=== PATIENT | male | born 1935 | race Caucasian/White ===

== ENCOUNTER 2017-07-11 05:48 | Day surgery (SDC) | payer MEDICARE ==
[2017-07-11] MEDS ORDERED: DIPRIVAN 200 MG/20 ML IV ONE (05:49)
[2017-07-11] MEDS ORDERED: Lactated Ringers 1,000 ML IV SCH (06:00)
[2017-07-11 09:34] VITALS: BP 140/71; PULSE 50; O2SAT 98
--- NOTE | 2017-07-11 10:12 | OP ---
SURGERY DATE/TIME: 07/11/2017 0755 PREOPERATIVE DIAGNOSIS: Abdominal pain and history of colon polyps. POSTOPERATIVE DIAGNOSIS: Sigmoid diverticulosis otherwise normal colon. PROCEDURE: Colonoscopy. SURGEON: Dr. Lacy. ANESTHESIA: MAC. Medications given by anesthesia department. HISTORY: The patient is an 82 year-old white male patient presenting now for colonoscopic evaluation. He reports he has been having problems with abdominal pain in the lower area. He reports every time he has had a colonoscopy in the past polyps have been removed. He reports it has been nine years since his most recent exam. The patient was felt the need to have endoscopic evaluation. He was appraised of the risks of the procedure including the risk of perforation, phlebitis, untoward reaction to medication, bleeding and missed lesions. The patient verbalized his understanding and desired to have the procedure performed. DESCRIPTION OF PROCEDURE: The patient was given the medications by the anesthesia department. He had continuous pulse oximetry, ECG monitoring, intermittent blood pressure monitoring and tidal CO2 monitoring during the examination. He was placed in the left lateral decubitus position. A digital rectal examination was performed and revealed normal anal sphincter tone, a firm but normal sized prostate with a small nodule in the 12:00 position. There were no other masses felt. Small hemorrhoids were present. The flexible Olympus pediatric colonoscope was used to intubate the rectum. A view of the colon was developed sequentially to the cecum as identified by the appendiceal orifice and ileocecal valve. Upon insertion and withdrawal, including a retroflex view in the rectum was noted moderate sigmoid diverticulosis otherwise no mucosal lesions were encountered. The scope was removed from the patient who tolerated the procedure well and was sent back to OP recovery in good condition. The prep was noted to be fair.
== END 2017-07-11 09:30 | disposition home or self-care (01) ==
LOC: SDC 05:48
PROVIDERS: ATTEND Family Medicine
DX: K57.30 Diverticulosis of large intestine without perforation or abscess without bleeding (principal); Z86.010 Personal history of colon polyps
CPT/HCPCS: 99100; J2704

== ENCOUNTER 2024-05-14 09:30 | Inpatient (IN) | payer MEDICARE, OTHER ==
--- NOTE | 2024-05-14 09:39 | ERPHSYRPT ---
- History of Present Illness Time Seen by Provider: 05/14/24 09:39 Historian: patient, family Exam Limitations: no limitations Physician History: This is an 89-year-old white male patient of Dr. Leblanc who arrives by private vehicle with complaints of abdominal pain and nausea. Patient states that yesterday afternoon he ate a [employer] hamburger and then in the early evening he ate meatloaf dinner. At 3:00 this morning he had severe abdominal pain that is generalized but most of the pain now is in the left lower quadrant. He said no vomiting and has had no diarrhea. He denies chest pain and he denies shortness of breath. He thinks he might of had food poisoning. Patient has a history gastroesophageal reflux disease, hypertension, coronary artery disease ( CABG and cardiac stent) and is on Plavix. Patient states that he can take morphine. He cannot take Sahara. Timing/Duration: today Quality: cramping Abdominal Pain Onset Location: LLQ (Worse pain in the left lower quadrant), generalized abdomen Pain Radiation: no radiation Severity of Pain-Max: moderate Severity of Pain-Current: moderate Modifying Factors: Improves With: other (Nausea without vomiting). Worsens With: vomiting Associated Symptoms: loss of appetite, nausea, No chest pain, No shortness of breath, No vomiting Previous symptoms: no prior history, no recent treatment Allergies/Adverse Reactions: mexiletine [From Mexitil] Allergy (Mild, Verified 05/14/24 09:42) Rash morphine [From Sahara] Allergy (Mild, Verified 05/14/24 09:42) Rash Home Medications: Isosorbide Mononitrate 30 mg [Imdur 30 MG] 30 mg PO DAILY 05/14/24 [History] Lisinopril 10 mg [Zestril 10 MG] 10 mg PO DAILY 05/14/24 [History] Omeprazole 20 mg PO DAILY 05/14/24 [History] Travel Risk - International Travel Have you traveled outside of the country in past 3 weeks: No - Emerging Infectious Disease Are you exhibiting symptoms associated with any current EIDs: Yes Symptoms: Abdominal Pain - Review of Systems Constitutional: No Symptoms Eyes: No Symptoms Ears, Nose, & Throat: No Symptoms Respiratory: No Symptoms Cardiac: No Symptoms Abdominal/Gastrointestinal: Abdominal Pain, Nausea, Appetite Changes Genitourinary Symptoms: No Symptoms Musculoskeletal: No Symptoms Skin: No Symptoms Neurological: No Symptoms Psychological: No Symptoms Endocrine: No Symptoms Hematologic/Lymphatic: No Symptoms Immunological/Allergic: No Symptoms All Other Systems: Reviewed and Negative - Past Medical History Pertinent Past Medical History: Yes Neurological History: No Pertinent History ENT History: No Pertinent History Cardiac History: Hypertension, Myocardial Infarction (IA) Respiratory History: No Pertinent History Endocrine Medical History: No Pertinent History Musculoskeletal History: Arthritis GI Medical History: No Pertinent History History: No Pertinent History Psycho-Social History: No Pertinent History Male Reproductive Disorders: No Pertinent History - Past Surgical History Past Surgical History: Yes Neuro Surgical History: No Pertinent History Cardiac: CABG, Cardiac Catheterization, Cardiac Stent Respiratory: No Pertinent History Gastrointestinal: No Pertinent History Genitourinary: No Pertinent History Musculoskeletal: Orthopedic Surgery Male Surgical History: No Pertinent History Other Surgical History: rt shoulder - Social History Smoking Status: Former smoker Exposure to second hand smoke: No - Nursing Vital Signs Nursing Vital Signs: Initial Vital Signs Pulse Rate 63 05/14/24 09:42 Respiratory Rate 21 05/14/24 09:42 Blood Pressure 143/71 05/14/24 09:42 O2 Sat by Pulse Oximetry 97 05/14/24 09:42 Pain Scale Pain Intensity 1 - Physical Exam General Appearance: no apparent distress, alert, anxiety Eye Exam: PERRL/EOMI, eyes nml inspection Ears, Nose, Throat Exam: normal ENT inspection, moist mucous membranes Neck Exam: normal inspection, non-tender, supple, full range of motion Respiratory Exam: normal breath sounds, lungs clear, airway intact, No chest tenderness, No respiratory distress Cardiovascular Exam: regular rate/rhythm, normal heart sounds, normal peripheral pulses Gastrointestinal/Abdomen Exam: soft, normal bowel sounds, tenderness ( Periumbilical into the left periumbilical region), guarding, No rebound Rectal Exam: not done Back Exam: normal inspection, normal range of motion, No CVA tenderness, No vertebral tenderness Extremity Exam: normal inspection, normal range of motion, pelvis stable Neurologic Exam: alert, oriented x 3, cooperative, gynecologist II-XII nml as tested, normal mood/affect, nml cerebellar function, nml station & gait, sensation nml Skin Exam: normal color, warm, dry Lymphatic Exam: No adenopathy SpO2 Interpretation: normal O2 Delivery: Room Air - Course Nursing assessment & vital signs reviewed: Yes Ordered Tests: Active Orders 24 hr Category Date Time Status IV Insertion STAT Care 05/14/24 10:08 Active ABDOMEN AND PELVIS W/0 CONTRAS [CT] Stat Exams 05/14/24 10:08 Completed AMYLASE Stat Lab 05/14/24 10:00 Completed CBC W DIFF Stat Lab 05/14/24 10:00 Completed CMP Stat Lab 05/14/24 10:00 Completed LIPASE Stat Lab 05/14/24 10:00 Completed Lactic Acid Stat Lab 05/14/24 11:10 Completed Medication Summary Generic Name Dose Route Start Last Admin Trade Name Freq PRN Reason Stop Dose Admin Sodium Chloride 1,000 mls @ 100 mls/hr 05/14/24 10:15 05/14/24 12:54 Sodium Chloride 0.9% 1000 Ml IV 06/13/24 10:14 999 mls/hr .Q10H DAO Infusion Discontinued Medications Generic Name Dose Route Start Last Admin Trade Name Freq PRN Reason Stop Dose Admin Morphine Sulfate 4 mg 05/14/24 10:14 05/14/24 10:21 Morphine Sulfate 4 Mg/Ml Injection IV 05/14/24 10:15 4 mg STAT ONE Administration Morphine Sulfate Confirm 05/14/24 10:20 Morphine Sulfate 4 Mg/Ml Injection Administered 05/14/24 10:21 Dose 4 mg .ROUTE .STK-MED ONE Morphine Sulfate 2 mg 05/14/24 13:18 05/14/24 13:23 Morphine Sulfate 2 Mg/Ml Inj IV 05/14/24 13:19 2 mg STAT ONE Administration Morphine Sulfate Confirm 05/14/24 13:20 Morphine Sulfate 2 Mg/Ml Inj Administered 05/14/24 13:21 Dose 2 mg .ROUTE .STK-MED ONE Ondansetron HCl 4 mg 05/14/24 10:08 05/14/24 10:13 Ondansetron Hcl 4 Mg/2 Ml Vial IV 05/14/24 10:09 4 mg STAT ONE Administration Ondansetron HCl Confirm 05/14/24 10:11 Ondansetron Hcl 4 Mg/2 Ml Vial Administered 05/14/24 10:12 Dose 4 mg .ROUTE .STK-MED ONE Pantoprazole Sodium 40 mg 05/14/24 10:08 05/14/24 10:13 Pantoprazole 40 Mg Vial IV 05/14/24 10:09 40 mg STAT ONE Administration Pantoprazole Sodium Confirm 05/14/24 10:11 Pantoprazole 40 Mg Vial Administered 05/14/24 10:12 Dose 40 mg IV .STK-MED ONE Lab/Rad Data: Laboratory Result Diagrams 05/14/24 10:00 05/14/24 10:00 Laboratory Results 05/14/24 05/14/24 05/14/24 Range/Units 11:10 10:13 10:00 WBC (4.23-9.07) x10^3/uL RBC (4.63-6.08) x10^6/uL Hgb (13.7-17.5) g/dL Hct (40.1-51.0) % MCV (79.0-92.2) fL MCH (25.7-32.2) pg MCHC (32.3-36.5) g/dL RDW (11.6-14.4) % Plt Count (163-337) x10^3/uL MPV (9.4-12.4) fL Gran % (34.0-67.9) % Immature Gran % (Auto) (0.001-0.429) % Nucleat RBC Rel Count (0.00-0.2) % Eos # (Auto) (0.04-0.54) x10^3/uL Immature Gran # (Auto) (0.001-0.031) x10^3u/L Absolute Lymphs (auto) (1.32-3.57) x10^3/uL Absolute Monos (auto) (0.30-0.82) x10^3/uL Absolute Nucleated RBC (0.00-0.012) x10^3u/L Lymphocytes % (21.8-53.1) % Monocytes % (5.3-12.2) % Eosinophils % (0.8-7.0) % Basophils % (0.2-1.2) % Absolute Granulocytes (1.78-5.38) x10^3/uL Basophils # (0.01-0.08) x10^3/uL Sodium (135-145) mmol/L Potassium (3.5-5.1) mmol/L Chloride (98-107) mmol/L Carbon Dioxide (22-30) mmol/L Anion Gap (5-15) MEQ/L BUN (9-20) mg/dL Creatinine (0.66-1.25) mg/dL Estimated GFR ML/MIN Glucose (74-106) mg/dL Lactic Acid 1.9 (0.4-2.0) Calcium (8.4-10.2) mg/dL Total Bilirubin (0.2-1.3) mg/dL AST (17-59) U/L ALT (0-50) U/L Alkaline Phosphatase (38-126) U/L Serum Total Protein (6.3-8.2) g/dL Albumin (3.5-5.0) g/dL Amylase (30-110) U/L Lipase (23-300) U/L Urine Color JUNIE (YELLOW) Urine Appearance CLEAR (CLEAR) Urine pH 5.5 (5-6) Ur Specific [place] >=1.030 A (1.005-1.025) POC Urine Protein Conf 30 A (Negative) Urine Ketones TRACE A (NEGATIVE) Urine Nitrite NEGATIVE (NEGATIVE) Urine Bilirubin NEGATIVE (NEGATIVE) Urine Urobilinogen 0.2 (0-1) mg/dL Urine Leukocytes NEGATIVE (NEGATIVE) Urine RBC SMALL A (0-5) Ed/ul Urine Microscopic RBC 3-5 (0-5) /HPF Urine Microscopic WBC 0-2 (0-5) /HPF Ur Epithelial Cells None Seen (None Seen) /HPF Urine Bacteria Rare A (None Seen) /HPF Urine Mucus Moderate A (NEGATIVE) /HPF Urine Culture Reflexed NO (NO) Urine Glucose NEGATIVE (NEGATIVE) mg/dL Influenza Type A Ag NEGATIVE (NEGATIVE) Influenza Type B Ag NEGATIVE (NEGATIVE) RSV (PCR) NEGATIVE (NEGATIVE) SARS-CoV-2 (PCR) NEGATIVE (NEGATIVE) 05/14/24 05/14/24 Range/Units 10:00 10:00 WBC 9.5 H (4.23-9.07) x10^3/uL RBC 4.86 (4.63-6.08) x10^6/uL Hgb 15.2 (13.7-17.5) g/dL Hct 45.6 (40.1-51.0) % MCV 93.8 H (79.0-92.2) fL MCH 31.3 (25.7-32.2) pg MCHC 33.3 (32.3-36.5) g/dL RDW 12.9 (11.6-14.4) % Plt Count 251 (163-337) x10^3/uL MPV 10.5 (9.4-12.4) fL Gran % 81.2 H (34.0-67.9) % Immature Gran % (Auto) 0.5 H (0.001-0.429) % Nucleat RBC Rel Count 0.0 (0.00-0.2) % Eos # (Auto) 0.08 (0.04-0.54) x10^3/uL Immature Gran # (Auto) 0.05 H (0.001-0.031) x10^3u/L Absolute Lymphs (auto) 0.99 L (1.32-3.57) x10^3/uL Absolute Monos (auto) 0.62 (0.30-0.82) x10^3/uL Absolute Nucleated RBC 0.00 (0.00-0.012) x10^3u/L Lymphocytes % 10.5 L (21.8-53.1) % Monocytes % 6.6 (5.3-12.2) % Eosinophils % 0.8 (0.8-7.0) % Basophils % 0.4 (0.2-1.2) % Absolute Granulocytes 7.68 H (1.78-5.38) x10^3/uL Basophils # 0.04 (0.01-0.08) x10^3/uL Sodium 136 (135-145) mmol/L Potassium 4.3 (3.5-5.1) mmol/L Chloride 103 (98-107) mmol/L Carbon Dioxide 22 (22-30) mmol/L Anion Gap 14.9 (5-15) MEQ/L BUN 27 H (9-20) mg/dL Creatinine 1.01 (0.66-1.25) mg/dL Estimated GFR 71.1 ML/MIN Glucose 121 H (74-106) mg/dL Lactic Acid (0.4-2.0) Calcium 8.8 (8.4-10.2) mg/dL Total Bilirubin 0.80 (0.2-1.3) mg/dL AST 29 (17-59) U/L ALT 23 (0-50) U/L Alkaline Phosphatase 79 (38-126) U/L Serum Total Protein 6.8 (6.3-8.2) g/dL Albumin 4.3 (3.5-5.0) g/dL Amylase 271 H (30-110) U/L Lipase 1994 H (23-300) U/L Urine Color (YELLOW) Urine Appearance (CLEAR) Urine pH (5-6) Ur Specific [place] (1.005-1.025) POC Urine Protein Conf (Negative) Urine Ketones (NEGATIVE) Urine Nitrite (NEGATIVE) Urine Bilirubin (NEGATIVE) Urine Urobilinogen (0-1) mg/dL Urine Leukocytes (NEGATIVE) Urine RBC (0-5) Ed/ul Urine Microscopic RBC (0-5) /HPF Urine Microscopic WBC (0-5) /HPF Ur Epithelial Cells (None Seen) /HPF Urine Bacteria (None Seen) /HPF Urine Mucus (NEGATIVE) /HPF Urine Culture Reflexed (NO) Urine Glucose (NEGATIVE) mg/dL Influenza Type A Ag (NEGATIVE) Influenza Type B Ag (NEGATIVE) RSV (PCR) (NEGATIVE) SARS-CoV-2 (PCR) (NEGATIVE) - Progress Progress: improved, pain not gone completely Progress Note: 05/14/24 10:27 My medical decision making of the assignment of moderate complexity is based on review of the patient's past medical history, review of the patient's medication list, review the patient drug allergy list, history present illness and physical findings on examination. The workup in this patient includes placement of intravenous line, infusion of normal saline solution, infusion of Zofran, infusion of 4 mg of morphine, infusion of Protonix, CBC, CMP, amylase, lipase, lactic acid, urinalysis and CT scan of the abdomen pelvis without contrast. Differential diagnosis includes is not limited to pancreatitis, colitis, d iverticulitis, ischemic bowel, food poisoning 05/14/24 12:25 I interpreted the patient's laboratory data results. Based on the laboratory data results, the patient has evidence of mild dehydration and acute pancreatitis. 05/14/24 12:[address] scan of the abdomen pelvis without contrast was interpreted by the radiologist and I reviewed the impression. The impression states chronic findings of pulmonary fibrosis/scarring. No abdominal aortic aneurysm present. There is colonic diverticulosis. No evidence of acute appendicitis. The noncontrasted stomach and bowel loops appear nonobstructed. There is no free air and no free fluid. The patient has evidence of mild dehydration and we will infuse a full liter of intravenous crystalloid. Patient has a normal white count, normal lactic acid level, normal kidney function, patient is afebrile. Patient also is normotensive with normal heart rate. His pain is controlled with intravenous morphine and his nausea is controlled with Zofran. It is not unreasonable to place him in observation in the hospital with IV hydration and pain and nausea control. It is possible that the patient does well with clear liquid diet, pain control and antinausea control as an outpatient. I will offer him both options and we will, together, decide which direction he prefers to take. That is, observational status in the hospital or outpatient management. 05/14/24 12:58 Patient is reexamined. He has no chest pain. He has no shortness of breath. He has no abdominal pain. He denies nausea. I discussed with him being placed in observation in the hospital. He prefers not to be placed in the hospital. His was being discharged today on hospice care and he wants to be home. I think he is awake alert and understands his condition and the need for drinking plenty of clear liquids and avoiding fatty greasy spicy foods. We will give him an attempt at outpatient management. 05/14/24 13:27 Initially, the patient stated that he wanted to go home for the above reason. However, shortly after my discussion with him at the time of discharge, he began having abdominal pain. He now prefers to be placed in observation. 05/14/24 13:33 I spoke with telehospitalist Dr. MENDOZA. I reviewed the patient history, presenting complaint, physical findings on examination, workup results and the patient response to our interventions. We will place in observation and provide him with IV hydration, clear liquid diet, antiemetics and pain medicine repeat labs for tomorrow morning. Counseled pt/family regarding: lab results, diagnosis, rad results Medical Desision Making - Discussion of managment Care discussed with:: hospitalist Reviewed:: Test results, Need for additional workup Agreed on:: place in obs Will see patient: in hospital - Diagnostic Testing Diagnostic test were ordered, analyzed, and reviewed by me: Yes Radiological Interpretation: Reviewed by me, Teleradiologist Report - Risk of complications The pt has a mod risk of morbidity or mortality based on: Need for prescription drug management - Departure Departure Disposition: Home Clinical Impression: Mild dehydration, Acute pancreatitis Condition: Stable Critical Care Time: No Referrals: TRISTON LEBLANC MD [Primary Care Provider] - Follow up/PCP as directed Additional Instructions: Drink plenty of clear liquids as discussed including clear liquids soups, Gatorade, Sprite and water. Slowly advance your diet but avoid fatty greasy spicy foods for the next 2 to 3 days. Return to the emergency department if your nausea and abdominal pain recur and worsen. Prescriptions: Ondansetron ODT 4 MG [Zofran Odt 4 mg] 4 mg PO Q6H PRN PRN #10 tablet PRN Reason: Vomiting
[2024-05-14] MEDS ORDERED: Zofran 4 MG/2 ML VIAL ONE (10:11)
[2024-05-14] MEDS ORDERED: PROTONIX 40 MG IV IV ONE (10:11)
[2024-05-14] MEDS: Zofran 4 MG/2 ML VIAL IV ONE (10:13)
[2024-05-14] MEDS: Sodium Chloride 0.9% 1000 ML 1,000 ML IV SCH (10:13)
[2024-05-14] MEDS: PROTONIX 40 MG IV IV ONE (10:13)
[2024-05-14] MEDS ORDERED: MORPHINE SULFATE 4 MG INJ ONE (10:20)
[2024-05-14] MEDS: MORPHINE SULFATE 4 MG INJ IV ONE (10:21)
[2024-05-14 10:34] LABS: Absolute Neutrophil Ct (ANC) 7.68 x10^3/uL (1.78-5.38); BASOPHIL % 0.4 % (0.2-1.2); Basophil (Absolute #) 0.04 x10^3/uL (0.01-0.08); Eosinophil % 0.8 % (0.8-7.0); Eosinophil (Absolute #) 0.08 x10^3/uL (0.04-0.54); Hematocrit 45.6 % (40.1-51.0); Hemoglobin 15.2 g/dL (13.7-17.5); IMMATURE GRAN # 0.05 x10^3u/L (0.001-0.031); IMMATURE GRAN % 0.5 % (0.001-0.429); Lymphocyte (Absolute #) 0.99 x10^3/uL (1.32-3.57); Lymphocytes % 10.5 % (21.8-53.1); Mean Cell Volume 93.8 fL (79.0-92.2); Mean Corpuscular Hemoglobin 31.3 pg (25.7-32.2); Mean Corpuscular Hgb Concent. 33.3 g/dL (32.3-36.5); Mean Platelet Volume 10.5 fL (9.4-12.4); Monocyte (Absolute #) 0.62 x10^3/uL (0.30-0.82); Monocytes % 6.6 % (5.3-12.2); Neutrophil % 81.2 % (34.0-67.9); Platelet Count 251 x10^3/uL (163-337); Red Blood Count 4.86 x10^6/uL (4.63-6.08); Red Cell Distribution Width 12.9 % (11.6-14.4); White Blood Count 9.5 x10^3/uL (4.23-9.07)
[2024-05-14 11:23] LABS: ALBUMIN 4.3 g/dL (3.5-5.0); ANION GAP 14.9 MEQ/L (5-15); BILIRUBIN,TOTAL 0.8 mg/dL (0.2-1.3); Calcium 8.8 mg/dL (8.4-10.2); Creatinine 1 1.01 mg/dL (0.66-1.25); EST GLOMERULAR FILTRATION RATE 71.1 ML/MIN; Potassium 4.3 mmol/L (3.5-5.1); Total Protein 6.8 g/dL (6.3-8.2)
[2024-05-14 11:45] LABS: INFLUENZA A NEGATIVE (NEGATIVE); INFLUENZA B NEGATIVE (NEGATIVE); RESPIRATORY SYNCTIAL VIRUS NEGATIVE (NEGATIVE); SARS-CoV-2 Xpert Express NEGATIVE (NEGATIVE)
[2024-05-14 11:55] LABS: Appearance CLEAR (CLEAR); Bilirubin NEGATIVE (NEGATIVE); Glucose NEGATIVE (NEGATIVE); Ketones TRACE (NEGATIVE)
[2024-05-14 11:56] LABS: Bacteria Rare /HPF (None Seen); Epithelial Cells None Seen /HPF (None Seen); Mucus Moderate /HPF (NEGATIVE); Nitrite NEGATIVE (NEGATIVE); Ph 5.5 (5-6); Protein,Urine Dip 30 (Negative); RBC SMALL Ery/ul (0-5); Specific Gravity >=1.030 (1.005-1.025); Urobilinogen 0.2 mg/dL (0-1); WBC 0-2 /HPF (0-5)
--- NOTE | 2024-05-14 12:09 | XRAY ---
Indication: Pain and nausea. Multiple contiguous axial images obtained through the abdomen and pelvis without contrast. Comparison: None Lung bases demonstrate scattered peripheral fibrosis/scarring and small left lower lobe calcified granuloma. No infiltrate or effusion. Heart not enlarged with scattered coronary calcifications. Small hiatal hernia. Noncontrasted stomach and bowel loops appear nonobstructed with normal appendix. Scattered colonic diverticulosis, greatest sigmoid colon. 2.6 cm right upper renal exophytic cyst. No free fluid/air. Remaining liver, gallbladder, pancreas, spleen, adrenal glands, kidneys, ureters, and bladder are unremarkable for noncontrast exam. Moderate scattered aortoiliac calcifications without AAA. Osseous structures intact with osteopenia, mild/moderate degenerative changes throughout thoracolumbar spine, and moderate levorotoscoliosis centered at L3. Impression: Chronic findings including pulmonary fibrosis/scarring, right renal cyst, arteriosclerotic disease, hiatal hernia, colonic diverticulosis, and chronic bony findings. No acute findings on this noncontrast exam.
[2024-05-14] MEDS ORDERED: MORPHINE SULFATE 2 MG INJ ONE (13:20)
[2024-05-14] MEDS: MORPHINE SULFATE 2 MG INJ IV ONE (13:23)
[2024-05-14] MEDS ORDERED: MORPHINE SULFATE 2 MG INJ IV PRN (14:18)
[2024-05-14] MEDS ORDERED: MORPHINE SULFATE 4 MG INJ IV PRN (14:46)
[2024-05-14] MEDS ORDERED: Sodium Chloride 0.9% 1000 ML 1,000 ML IV SCH (14:46)
[2024-05-14] MEDS ORDERED: TYLENOL 325 MG PO PRN (14:46)
[2024-05-14] MEDS ORDERED: Zofran 4 MG/2 ML VIAL IV PRN (14:46)
--- NOTE | 2024-05-14 14:51 | PCM.HP ---
History of Present Illness - Chief Complaint Chief Complaint: elevated lipase Date: 05/14/24 History of Present Illness: is a 89 year old male with PHX of gastroesophageal reflux disease, hypertension, coronary artery disease (CABG and cardiac stent) and is on Plavix. He arrived to ER today with complaints of abdominal pain and nausea. Patient states that yesterday afternoon he ate a [employer] hamburger and then in the early evening he ate meatloaf dinner. At 3:00 this morning he had severe abdominal pain that is generalized but most of the pain now is in the left upper quadrant. He said no nausea/vomiting or diarrhea. He denies chest pain and he denies shortness of breath. He thinks he might of had food poisoning. Lipase [address] abd does not show pancreatitits. US of gallbladder ordered. May need ERCP. IVF started at 150ml/hr. Pt made NPO. WBC 9.5. He reports he does not drink and had never had this before. He does report severe GERD recently and was has an upcoming appointment with Surgery for EGD OP. He denies CP, SOB, N/V/D. - Review of Systems Constitutional: No Fever, No Chills Eyes: No Symptoms Ears, Nose, & Throat: No Symptoms Respiratory: No Cough, No Short Of Breath Cardiac: No Chest Pain, No Edema, No Syncope Abdominal/Gastrointestinal: Abdominal Pain, No Nausea, No Vomiting, No Diarrhea Genitourinary Symptoms: No Dysuria Musculoskeletal: No Back Pain, No Neck Pain Skin: No Rash Neurological: No Dizziness, No Focal Weakness, No Sensory Changes Psychological: No Symptoms Endocrine: No Symptoms Hematologic/Lymphatic: No Symptoms Immunological/Allergic: No Symptoms Medications & Allergies Home Medications: Home Medication List Isosorbide Mononitrate 30 mg [Imdur 30 MG] 30 mg PO DAILY 05/14/24 [History Confirmed 05/14/24] Lisinopril 10 mg [Zestril 10 MG] 10 mg PO DAILY 05/14/24 [History Co nfirmed 05/14/24] Omeprazole 20 mg PO DAILY 05/14/24 [History Confirmed 05/14/24] Ondansetron ODT 4 MG [Zofran Odt 4 mg] 4 mg PO Q6H PRN PRN #10 tablet 05/14/24 [Rx] Allergies/Adverse Reactions: Allergies Allergy/AdvReac Type Severity Reaction Status Date / Time mexiletine [From Mexitil] Allergy Mild Rash Verified 05/14/24 09:42 morphine [From [place]] Allergy Mild Rash Verified 05/14/24 09:42 - Past Medical History Past Medical History: Yes Neurological History: No Pertinent History ENT History: No Pertinent History Cardiac History: Hypertension, Myocardial Infarction (DE) Respiratory History: No Pertinent History Endocrine Medical History: No Pertinent History Musculoskelatal History: Arthritis GI Medical History: No Pertinent History History: No Pertinent History Pyscho-Social History: No Pertinent History Male Reproductive Disorders: No Pertinent History - Past Surgical History Past Surgical History: Yes Neuro Surgical History: No Pertinent History Cardiac History: CABG, Cardiac Catheterization, Cardiac Stent Respiratory Surgery: No Pertinent History GI Surgical History: No Pertinent History Genitourinary Surgical Hx: No Pertinent History Musculskeletal Surgical Hx: Orthopedic Surgery Male Surgical History: No Pertinent History Other Surgical History: rt shoulder - Social History Smoking Status: Former smoker Exposure to second hand smoke: No Alcohol: None Drug Use: none - Social Determinants of Health Will the patient participate in the screening: Yes Do you worry about a steady place to live?: No Do you have any problems with any of the following?: No known problems In the past 12 months,have you had to go without utilities?: No Have you or anyone in your house had to go without enough: No Transportation Issues: No Has anyone in your support network made you feel unsafe?: No - Physical Exam Vital Signs: Vital Signs - 24 hr Temp Pulse Resp BP BP Pulse Ox 05/14/24 14:00 69 18 154/70 97 05/14/24 13:30 67 19 173/85 97 05/14/24 13:00 68 15 149/75 99 05/14/24 12:30 75 12 135/69 98 05/14/24 12:00 65 16 137/64 94 L 05/14/24 11:30 76 16 144/67 95 05/14/24 11:00 68 17 141/71 98 05/14/24 10:00 78 17 139/61 97 05/14/24 09:46 97 F 79 18 143/71 98 05/14/24 09:42 63 21 143/71 97 General Appearance: no apparent distress, alert Neurologic Exam: alert, oriented x 3, cooperative, normal mood/affect, nml c erebellar function, nml station & gait, sensation nml, No motor deficits Eye Exam: PERRL/EOMI, eyes nml inspection Ears, Nose, Throat Exam: normal ENT inspection, TMs normal, pharynx normal, moist mucous membranes Neck Exam: normal inspection, non-tender, supple, full range of motion Respiratory Exam: normal breath sounds, lungs clear, No respiratory distress Cardiovascular Exam: regular rate/rhythm, normal heart sounds, normal peripheral pulses Gastrointestinal/Abdomen Exam: soft, normal bowel sounds, tenderness (LUQ), No mass Back Exam: normal inspection, normal range of motion, No CVA tenderness, No vertebral tenderness Extremity Exam: normal inspection, normal range of motion, pelvis stable Skin Exam: normal color, warm, dry, No rash Lymphatic Exam: No adenopathy Results - Labs Lab/Micro Results: Lab Results-Last 24 Hours 05/14/24 05/14/24 05/14/24 Range/Units 10:00 10:00 10:00 WBC 9.5 H (4.23-9.07) x10^3/uL RBC 4.86 (4.63-6.08) x10^6/uL Hgb 15.2 (13.7-17.5) g/dL Hct 45.6 (40.1-51.0) % MCV 93.8 H (79.0-92.2) fL MCH 31.3 (25.7-32.2) pg MCHC 33.3 (32.3-36.5) g/dL RDW 12.9 (11.6-14.4) % Plt Count 251 (163-337) x10^3/uL MPV 10.5 (9.4-12.4) fL Gran % 81.2 H (34.0-67.9) % Immature Gran % (Auto) 0.5 H (0.001-0.429) % Nucleat RBC Rel Count 0.0 (0.00-0.2) % Eos # (Auto) 0.08 (0.04-0.54) x10^3/uL Immature Gran # (Auto) 0.05 H (0.001-0.031) x10^3u/L Absolute Lymphs (auto) 0.99 L (1.32-3.57) x10^3/uL Absolute Monos (auto) 0.62 (0.30-0.82) x10^3/uL Absolute Nucleated RBC 0.00 (0.00-0.012) x10^3u/L Lymphocytes % 10.5 L (21.8-53.1) % Monocytes % 6.6 (5.3-12.2) % Eosinophils % 0.8 (0.8-7.0) % Basophils % 0.4 (0.2-1.2) % Absolute Granulocytes 7.68 H (1.78-5.38) x10^3/uL Basophils # 0.04 (0.01-0.08) x10^3/uL Sodium 136 (135-145) mmol/L Potassium 4.3 (3.5-5.1) mmol/L Chloride 103 (98-107) mmol/L Carbon Dioxide 22 (22-30) mmol/L Anion Gap 14.9 (5-15) MEQ/L BUN 27 H (9-20) mg/dL Creatinine 1.01 (0.66-1.25) mg/dL Estimated GFR 71.1 ML/MIN Glucose 121 H (74-106) mg/dL Hemoglobin A1c (4.5-6.0) % Lactic Acid (0.4-2.0) Calcium 8.8 (8.4-10.2) mg/dL Total Bilirubin 0.80 (0.2-1.3) mg/dL AST 29 (17-59) U/L ALT 23 (0-50) U/L Alkaline Phosphatase 79 (38-126) U/L Serum Total Protein 6.8 (6.3-8.2) g/dL Albumin 4.3 (3.5-5.0) g/dL Amylase 271 H (30-110) U/L Lipase 1994 H (23-300) U/L Urine Color (YELLOW) Urine Appearance (CLEAR) Urine pH (5-6) Ur Specific Vivian (1.005-1.025) POC Urine Protein Conf (Negative) Urine Ketones (NEGATIVE) Urine Nitrite (NEGATIVE) Urine Bilirubin (NEGATIVE) Urine Urobilinogen (0-1) mg/dL Urine Leukocytes (NEGATIVE) Urine RBC (0-5) Ed/ul Urine Microscopic RBC (0-5) /HPF Urine Microscopic WBC (0-5) /HPF Ur Epithelial Cells (None Seen) /HPF Urine Bacteria (None Seen) /HPF Urine Mucus (NEGATIVE) /HPF Urine Culture Reflexed (NO) Urine Glucose (NEGATIVE) mg/dL Influenza Type A Ag NEGATIVE (NEGATIVE) Influenza Type B Ag NEGATIVE (NEGATIVE) RSV (PCR) NEGATIVE (NEGATIVE) SARS-CoV-2 (PCR) NEGATIVE (NEGATIVE) 05/14/24 05/14/24 05/14/24 Range/Units 10:13 10:17 11:10 WBC (4.23-9.07) x10^3/uL RBC (4.63-6.08) x10^6/uL Hgb (13.7-17.5) g/dL Hct (40.1-51.0) % MCV (79.0-92.2) fL MCH (25.7-32.2) pg MCHC (32.3-36.5) g/dL RDW (11.6-14.4) % Plt Count (163-337) x10^3/uL MPV (9.4-12.4) fL Gran % (34.0-67.9) % Immature Gran % (Auto) (0.001-0.429) % Nucleat RBC Rel Count (0.00-0.2) % Eos # (Auto) (0.04-0.54) x10^3/uL Immature Gran # (Auto) (0.001-0.031) x10^3u/L Absolute Lymphs (auto) (1.32-3.57) x10^3/uL Absolute Monos (auto) (0.30-0.82) x10^3/uL Absolute Nucleated RBC (0.00-0.012) x10^3u/L Lymphocytes % (21.8-53.1) % Monocytes % (5.3-12.2) % Eosinophils % (0.8-7.0) % Basophils % (0.2-1.2) % Absolute Granulocytes (1.78-5.38) x10^3/uL Basophils # (0.01-0.08) x10^3/uL Sodium (135-145) mmol/L Potassium (3.5-5.1) mmol/L Chloride (98-107) mmol/L Carbon Dioxide (22-30) mmol/L Anion Gap (5-15) MEQ/L BUN (9-20) mg/dL Creatinine (0.66-1.25) mg/dL Estimated GFR ML/MIN Glucose (74-106) mg/dL Hemoglobin A1c 5.57 (4.5-6.0) % Lactic Acid 1.9 (0.4-2.0) Calcium (8.4-10.2) mg/dL Total Bilirubin (0.2-1.3) mg/dL AST (17-59) U/L ALT (0-50) U/L Alkaline Phosphatase (38-126) U/L Serum Total Protein (6.3-8.2) g/dL Albumin (3.5-5.0) g/dL Amylase (30-110) U/L Lipase (23-300) U/L Urine Color JUNIE (YELLOW) Urine Appearance CLEAR (CLEAR) Urine pH 5.5 (5-6) Ur Specific Vivian >=1.030 A (1.005-1.025) POC Urine Protein Conf 30 A (Negative) Urine Ketones TRACE A (NEGATIVE) Urine Nitrite NEGATIVE (NEGATIVE) Urine Bilirubin NEGATIVE (NEGATIVE) Urine Urobilinogen 0.2 (0-1) mg/dL Urine Leukocytes NEGATIVE (NEGATIVE) Urine RBC SMALL A (0-5) Ed/ul Urine Microscopic RBC 3-5 (0-5) /HPF Urine Microscopic WBC 0-2 (0-5) /HPF Ur Epithelial Cells None Seen (None Seen) /HPF Urine Bacteria Rare A (None Seen) /HPF Urine Mucus Moderate A (NEGATIVE) /HPF Urine Culture Reflexed NO (NO) Urine Glucose NEGATIVE (NEGATIVE) mg/dL Influenza Type A Ag (NEGATIVE) Influenza Type B Ag (NEGATIVE) RSV (PCR) (NEGATIVE) SARS-CoV-2 (PCR) (NEGATIVE) - Radiology Impressions Radiology Exams & Impressions: Radiology Procedures Category Date Time Status ABDOMEN AND PELVIS W/0 CONTRAS [CT] Stat Exams 05/14/24 10:08 Completed Ultrasound Gallbladder [GALLBLADDER] [US] Routine Exams 05/14/24 14:16 Ordered Assessment/Plan (1) Elevated amylase and lipase Current Visit: Yes Status: Acute Assessment & Plan: - Amylase , lipase 1993 - lipid panel- reviewed - US gallbladder - NS @ 150 ml/hr - NPO - + LUQ pain - Consider ERCP - Narcotic pain control - A1C 5.57 Code(s): R74.8 - ABNORMAL LEVELS OF OTHER SERUM ENZYMES (2) Abdominal pain Current Visit: Yes Status: Acute Assessment & Plan: - LUQ pain - CT abd/pelvis: Impression: Chronic findings including pulmonary fibrosis/scarring, right renal cyst, arteriosclerotic disease, hiatal hernia, colonic diverticulosis, and chronic bony findings. No acute findings on this noncontrast exam. - CBC, CMP reviewed Code(s): R10.9 - UNSPECIFIED ABDOMINAL PAIN (3) Leukocytosis Current Visit: Yes Status: Acute Assessment & Plan: - 2:2 elevated amylase, lipase - WBC 9.5 - Consider antibiotics Code(s): D72.829 - ELEVATED WHITE BLOOD CELL COUNT, UNSPECIFIED (4) Hyperlipidemia Current Visit: Yes Status: Acute Assessment & Plan: - Cholesterol 219 - LDL 136 - Started Zocor 10mg HS daily Code(s): E78.5 - HYPERLIPIDEMIA, UNSPECIFIED (5) Pulmonary fibrosis Current Visit: Yes Status: Acute Assessment & Plan: - As seen on CT - Will need OP F/U - RA 97% Code(s): J84.10 - PULMONARY FIBROSIS, UNSPECIFIED (6) HTN (hypertension) Current Visit: Yes Status: Chronic Assessment & Plan: - BP elevated likely 2:2 pain - Resume lisinopril VTE: SCD's PPI: Protonix Next of KIN: D/C plan: 1-2 days Code status: Full Code(s): I10 - ESSENTIAL (PRIMARY) HYPERTENSION
--- NOTE | 2024-05-14 16:41 | XRAY ---
Indication: Elevated lipase. Two-dimensional color sonogram performed. Comparison: None Visualized gallbladder normally distended with borderline wall thickening up to 3.3 mm. No gallstones or pericholecystic fluid. Common bile duct measures 4.1 mm. No intrahepatic biliary distention. Remaining visualized liver, pancreas, and right kidney are sonographically unremarkable. No organomegaly or free fluid. Right kidney measures 9.7 x 5.0 x 5.6 cm. Impression: Borderline gallbladder wall thickening without cholelithiasis. Rule out chronic acalculous cholecystitis. Remaining gallbladder sonogram is negative.
[2024-05-14] MEDS: Hydromorphone 1 mg/ml Injection IV PRN (18:21)
[2024-05-14] MEDS: Zocor 10MG PO SCH (21:33)
[2024-05-14] MEDS: Zofran 4 MG/2 ML VIAL IV PRN (23:08)
[2024-05-15 05:23] LABS: Absolute Neutrophil Ct (ANC) 6.21 x10^3/uL (1.78-5.38); BASOPHIL % 0.4 % (0.2-1.2); Basophil (Absolute #) 0.03 x10^3/uL (0.01-0.08); Eosinophil % 1.4 % (0.8-7.0); Eosinophil (Absolute #) 0.12 x10^3/uL (0.04-0.54); Hematocrit 44.1 % (40.1-51.0); Hemoglobin 14.2 g/dL (13.7-17.5); IMMATURE GRAN # 0.02 x10^3u/L (0.001-0.031); IMMATURE GRAN % 0.2 % (0.001-0.429); Lymphocytes % 13.2 % (21.8-53.1); Mean Cell Volume 96.7 fL (79.0-92.2); Mean Corpuscular Hemoglobin 31.1 pg (25.7-32.2); Mean Corpuscular Hgb Concent. 32.2 g/dL (32.3-36.5); Mean Platelet Volume 10.5 fL (9.4-12.4); Monocyte (Absolute #) 0.88 x10^3/uL (0.30-0.82); Monocytes % 10.5 % (5.3-12.2); Neutrophil % 74.3 % (34.0-67.9); Platelet Count 233 x10^3/uL (163-337); Red Blood Count 4.56 x10^6/uL (4.63-6.08); Red Cell Distribution Width 13.4 % (11.6-14.4); White Blood Count 8.4 x10^3/uL (4.23-9.07)
[2024-05-15 05:45] LABS: ALBUMIN 4.1 g/dL (3.5-5.0); ANION GAP 12.4 MEQ/L (5-15); BILIRUBIN,TOTAL 0.8 mg/dL (0.2-1.3); Calcium 8.6 mg/dL (8.4-10.2); Creatinine 1 1.02 mg/dL (0.66-1.25); EST GLOMERULAR FILTRATION RATE 70.3 ML/MIN; Potassium 4.1 mmol/L (3.5-5.1); Total Protein 6.6 g/dL (6.3-8.2)
[2024-05-15] MEDS ORDERED: NON-FORMULARY ITEM (Omeprazole [Omeprazole] 20 MG Capsule.Dr) PO SCH (10:00)
[2024-05-15] MEDS: Imdur 30 MG PO SCH (10:12)
[2024-05-15] MEDS: PROTONIX 40 MG IV IV SCH (10:12)
[2024-05-15] MEDS: Zestril 10 MG PO SCH (10:12)
--- NOTE | 2024-05-15 10:31 | PCM.NOTE ---
Date and Time: 05/15/24 1024 Subjective Assessment: 05/14/24 is a 89 year old male with PHX of gastroesophageal reflux disease, hypertension, coronary artery disease (CABG and cardiac stent) and is on Plavix. He arrived to ER today with complaints of abdominal pain and nausea. Patient states that yesterday afternoon he ate a [employer] hamburger and then in the early evening he ate meatloaf dinner. At 3:00 this morning he had severe abdominal pain that is generalized but most of the pain now is in the left upper quadrant. He said no nausea/vomiting or diarrhea. He denies chest pain and he denies shortness of breath. He thinks he might of had food poisoning. Lipase [address] abd does not show pancreatitits. US of gallbladder ordered. May need ERCP. IVF started at 150ml/hr. Pt made NPO. WBC 9.5. He reports he does not drink and had never had this before. He does report severe GERD recently and was has an upcoming appointment with Surgery for EGD OP. He denies CP, SOB, N/V/D. 05/15/24 Pt walking in the halls today. He continues to have Abd. pain in upper quadrants. Pain is controlled with narcotic pain medication. He is awaiting surgery consult for recs. He denies any further concerns at this time. - Review of Systems Constitutional: No Fever, No Chills Eyes: No Symptoms Ears, Nose, & Throat: No Symptoms Respiratory: No Cough, No Short Of Breath Cardiac: No Chest Pain, No Edema, No Syncope Abdominal/Gastrointestinal: Abdominal Pain, No Nausea, No Vomiting, No Diarrhea Genitourinary Symptoms: No Dysuria Musculoskeletal: No Back Pain, No Neck Pain Skin: No Rash Neurological: No Dizziness, No Focal Weakness, No Sensory Changes Psychological: No Symptoms Endocrine: No Symptoms Hematologic/Lymphatic: No Symptoms Immunological/Allergic: No Symptoms Objective Exam General Appearance: no apparent distress, alert Neurologic Exam: alert, oriented x 3, cooperative, normal mood/affect, nml ce rebellar function, sensation nml, No motor deficits Skin Exam: normal color, warm, dry Eye Exam: PERRL, EOMI, eyes nml inspection Ears, Nose, Throat Exam: normal ENT inspection, pharynx normal, moist mucous membranes Neck Exam: normal inspection, non-tender, supple, full range of motion Respiratory Exam: normal breath sounds, lungs clear, No respiratory distress Cardiovascular Exam: regular rate/rhythm, normal heart sounds Gastrointestinal/Abdomen Exam: soft, tenderness (LUQ, RUQ), No mass Extremity Exam: normal inspection, normal range of motion Back Exam: normal inspection, normal range of motion, No CVA tenderness, No vertebral tenderness Male Genitalia Exam: deferred Rectal Exam: deferred Objective Data Vital Signs: Vital Signs - 24 hr Temp Pulse Resp BP BP Pulse Ox 05/15/24 08:00 97.5 F 85 18 130/64 96 05/15/24 03:39 97.1 F 82 18 170/74 92 L 05/15/24 00:00 98.3 F 83 16 169/81 95 05/14/24 19:48 96.9 F 68 16 130/61 95 05/14/24 19:24 96 05/14/24 14:48 97.5 F 74 18 136/73 96 05/14/24 14:14 97.5 F 74 20 136/73 96 05/14/24 14:00 69 18 154/70 97 05/14/24 13:30 67 19 173/85 97 05/14/24 13:00 68 15 149/75 99 05/14/24 12:30 75 12 135/69 98 05/14/24 12:00 65 16 137/64 94 L 05/14/24 11:30 76 16 144/67 95 05/14/24 11:00 68 17 141/71 98 Pain Assessment - Last Documented Pain Intensity 6 Pain Scale Used 0-10 Pain Scale Intake and Output: Intake & Output 05/12/24 05/13/24 05/14/24 05/15/24 11:59 11:59 11:59 11:59 Intake Total 1219 Balance 1219 Weight 78.9 kg 78.2 kg Lab Results: Lab Results-Last 24 Hours 05/14/24 05/14/24 05/14/24 Range/Units 10:00 10:00 10:00 WBC 9.5 H (4.23-9.07) x10^3/uL RBC 4.86 (4.63-6.08) x10^6/uL Hgb 15.2 (13.7-17.5) g/dL Hct 45.6 (40.1-51.0) % MCV 93.8 H (79.0-92.2) fL MCH 31.3 (25.7-32.2) pg MCHC 33.3 (32.3-36.5) g/dL RDW 12.9 (11.6-14.4) % Plt Count 251 (163-337) x10^3/uL MPV 10.5 (9.4-12.4) fL Gran % 81.2 H (34.0-67.9) % Immature Gran % (Auto) 0.5 H (0.001-0.429) % Nucleat RBC Rel Count 0.0 (0.00-0.2) % Eos # (Auto) 0.08 (0.04-0.54) x10^3/uL Immature Gran # (Auto) 0.05 H (0.001-0.031) x10^3u/L Absolute Lymphs (auto) 0.99 L (1.32-3.57) x10^3/uL Absolute Monos (auto) 0.62 (0.30-0.82) x10^3/uL Absolute Nucleated RBC 0.00 (0.00-0.012) x10^3u/L Lymphocytes % 10.5 L (21.8-53.1) % Monocytes % 6.6 (5.3-12.2) % Eosinophils % 0.8 (0.8-7.0) % Basophils % 0.4 (0.2-1.2) % Absolute Granulocytes 7.68 H (1.78-5.38) x10^3/uL Basophils # 0.04 (0.01-0.08) x10^3/uL Sodium 136 (135-145) mmol/L Potassium 4.3 (3.5-5.1) mmol/L Chloride 103 (98-107) mmol/L Carbon Dioxide 22 (22-30) mmol/L Anion Gap 14.9 (5-15) MEQ/L BUN 27 H (9-20) mg/dL Creatinine 1.01 (0.66-1.25) mg/dL Estimated GFR 71.1 ML/MIN Glucose 121 H (74-106) mg/dL Hemoglobin A1c (4.5-6.0) % Lactic Acid (0.4-2.0) Calcium 8.8 (8.4-10.2) mg/dL Total Bilirubin 0.80 (0.2-1.3) mg/dL AST 29 (17-59) U/L ALT 23 (0-50) U/L Alkaline Phosphatase 79 (38-126) U/L Serum Total Protein 6.8 (6.3-8.2) g/dL Albumin 4.3 (3.5-5.0) g/dL Triglycerides (30-150) mg/dL Cholesterol (50-200) mg/dL LDL Cholesterol (30-100) mg/dL HDL Cholesterol (40-60) mg/dL Heart Disease Risk Ratio Amylase 271 H (30-110) U/L Lipase 1994 H (23-300) U/L Urine Color (YELLOW) Urine Appearance (CLEAR) Urine pH (5-6) Ur Specific [place] (1.005-1.025) POC Urine Protein Conf (Negative) Urine Ketones (NEGATIVE) Urine Nitrite (NEGATIVE) Urine Bilirubin (NEGATIVE) Urine Urobilinogen (0-1) mg/dL Urine Leukocytes (NEGATIVE) Urine RBC (0-5) Ed/ul Urine Microscopic RBC (0-5) /HPF Urine Microscopic WBC (0-5) /HPF Ur Epithelial Cells (None Seen) /HPF Urine Bacteria (None Seen) /HPF Urine Mucus (NEGATIVE) /HPF Urine Culture Reflexed (NO) Urine Glucose (NEGATIVE) mg/dL Influenza Type A Ag NEGATIVE (NEGATIVE) Influenza Type B Ag NEGATIVE (NEGATIVE) RSV (PCR) NEGATIVE (NEGATIVE) SARS-CoV-2 (PCR) NEGATIVE (NEGATIVE) 05/14/24 05/14/24 05/14/24 Range/Units 10:13 10:17 10:17 WBC (4.23-9.07) x10^3/uL RBC (4.63-6.08) x10^6/uL Hgb (13.7-17.5) g/dL Hct (40.1-51.0) % MCV (79.0-92.2) fL MCH (25.7-32.2) pg MCHC (32.3-36.5) g/dL RDW (11.6-14.4) % Plt Count (163-337) x10^3/uL MPV (9.4-12.4) fL Gran % (34.0-67.9) % Immature Gran % (Auto) (0.001-0.429) % Nucleat RBC Rel Count (0.00-0.2) % Eos # (Auto) (0.04-0.54) x10^3/uL Immature Gran # (Auto) (0.001-0.031) x10^3u/L Absolute Lymphs (auto) (1.32-3.57) x10^3/uL Absolute Monos (auto) (0.30-0.82) x10^3/uL Absolute Nucleated RBC (0.00-0.012) x10^3u/L Lymphocytes % (21.8-53.1) % Monocytes % (5.3-12.2) % Eosinophils % (0.8-7.0) % Basophils % (0.2-1.2) % Absolute Granulocytes (1.78-5.38) x10^3/uL Basophils # (0.01-0.08) x10^3/uL Sodium (135-145) mmol/L Potassium (3.5-5.1) mmol/L Chloride (98-107) mmol/L Carbon Dioxide (22-30) mmol/L Anion Gap (5-15) MEQ/L BUN (9-20) mg/dL Creatinine (0.66-1.25) mg/dL Estimated GFR ML/MIN Glucose (74-106) mg/dL Hemoglobin A1c 5.57 (4.5-6.0) % Lactic Acid (0.4-2.0) Calcium (8.4-10.2) mg/dL Total Bilirubin (0.2-1.3) mg/dL AST (17-59) U/L ALT (0-50) U/L Alkaline Phosphatase (38-126) U/L Serum Total Protein (6.3-8.2) g/dL Albumin (3.5-5.0) g/dL Triglycerides 99 (30-150) mg/dL Cholesterol 219 H (50-200) mg/dL LDL Cholesterol 136 H (30-100) mg/dL HDL Cholesterol 56 (40-60) mg/dL Heart Disease Risk Ratio 4.0 Amylase (30-110) U/L Lipase (23-300) U/L Urine Color JUNIE (YELLOW) Urine Appearance CLEAR (CLEAR) Urine pH 5.5 (5-6) Ur Specific [place] >=1.030 A (1.005-1.025) POC Urine Protein Conf 30 A (Negative) Urine Ketones TRACE A (NEGATIVE) Urine Nitrite NEGATIVE (NEGATIVE) Urine Bilirubin NEGATIVE (NEGATIVE) Urine Urobilinogen 0.2 (0-1) mg/dL Urine Leukocytes NEGATIVE (NEGATIVE) Urine RBC SMALL A (0-5) Ed/ul Urine Microscopic RBC 3-5 (0-5) /HPF Urine Microscopic WBC 0-2 (0-5) /HPF Ur Epithelial Cells None Seen (None Seen) /HPF Urine Bacteria Rare A (None Seen) /HPF Urine Mucus Moderate A (NEGATIVE) /HPF Urine Culture Reflexed NO (NO) Urine Glucose NEGATIVE (NEGATIVE) mg/dL Influenza Type A Ag (NEGATIVE) Influenza Type B Ag (NEGATIVE) RSV (PCR) (NEGATIVE) SARS-CoV-2 (PCR) (NEGATIVE) 05/14/24 05/15/24 05/15/24 Range/Units 11:10 05:11 05:11 WBC 8.4 (4.23-9.07) x10^3/uL RBC 4.56 L (4.63-6.08) x10^6/uL Hgb 14.2 (13.7-17.5) g/dL Hct 44.1 (40.1-51.0) % MCV 96.7 H (79.0-92.2) fL MCH 31.1 (25.7-32.2) pg MCHC 32.2 L (32.3-36.5) g/dL RDW 13.4 (11.6-14.4) % Plt Count 233 (163-337) x10^3/uL MPV 10.5 (9.4-12.4) fL Gran % 74.3 H (34.0-67.9) % Immature Gran % (Auto) 0.2 (0.001-0.429) % Nucleat RBC Rel Count 0.0 (0.00-0.2) % Eos # (Auto) 0.12 (0.04-0.54) x10^3/uL Immature Gran # (Auto) 0.02 (0.001-0.031) x10^3u/L Absolute Lymphs (auto) 1.10 L (1.32-3.57) x10^3/uL Absolute Monos (auto) 0.88 H (0.30-0.82) x10^3/uL Absolute Nucleated RBC 0.00 (0.00-0.012) x10^3u/L Lymphocytes % 13.2 L (21.8-53.1) % Monocytes % 10.5 (5.3-12.2) % Eosinophils % 1.4 (0.8-7.0) % Basophils % 0.4 (0.2-1.2) % Absolute Granulocytes 6.21 H (1.78-5.38) x10^3/uL Basophils # 0.03 (0.01-0.08) x10^3/uL Sodium 141 (135-145) mmol/L Potassium 4.1 (3.5-5.1) mmol/L Chloride 108 H (98-107) mmol/L Carbon Dioxide 24 (22-30) mmol/L Anion Gap 12.4 (5-15) MEQ/L BUN 16 (9-20) mg/dL Creatinine 1.02 (0.66-1.25) mg/dL Estimated GFR 70.3 ML/MIN Glucose 102 (74-106) mg/dL Hemoglobin A1c (4.5-6.0) % Lactic Acid 1.9 (0.4-2.0) Calcium 8.6 (8.4-10.2) mg/dL Total Bilirubin 0.80 (0.2-1.3) mg/dL AST 24 (17-59) U/L ALT 21 (0-50) U/L Alkaline Phosphatase 77 (38-126) U/L Serum Total Protein 6.6 (6.3-8.2) g/dL Albumin 4.1 (3.5-5.0) g/dL Triglycerides (30-150) mg/dL Cholesterol (50-200) mg/dL LDL Cholesterol (30-100) mg/dL HDL Cholesterol (40-60) mg/dL Heart Disease Risk Ratio Amylase (30-110) U/L Lipase (23-300) U/L Urine Color (YELLOW) Urine Appearance (CLEAR) Urine pH (5-6) Ur Specific [place] (1.005-1.025) POC Urine Protein Conf (Negative) Urine Ketones (NEGATIVE) Urine Nitrite (NEGATIVE) Urine Bilirubin (NEGATIVE) Urine Urobilinogen (0-1) mg/dL Urine Leukocytes (NEGATIVE) Urine RBC (0-5) Ed/ul Urine Microscopic RBC (0-5) /HPF Urine Microscopic WBC (0-5) /HPF Ur Epithelial Cells (None Seen) /HPF Urine Bacteria (None Seen) /HPF Urine Mucus (NEGATIVE) /HPF Urine Culture Reflexed (NO) Urine Glucose (NEGATIVE) mg/dL Influenza Type A Ag (NEGATIVE) Influenza Type B Ag (NEGATIVE) RSV (PCR) (NEGATIVE) SARS-CoV-2 (PCR) (NEGATIVE) Radiology Exams: Radiology Procedures Category Date Time Status ABDOMEN AND PELVIS W/0 CONTRAS [CT] Stat Exams 05/14/24 10:08 Completed Ultrasound Gallbladder [GALLBLADDER] [US] Routine Exams 05/14/24 14:46 Completed Assessment/Plan (1) Elevated amylase and lipase Current Visit: Yes Status: Acute Code(s): R74.8 - ABNORMAL LEVELS OF OTHER SERUM ENZYMES (2) Abdominal pain Current Visit: Yes Status: Acute Code(s): R10.9 - UNSPECIFIED ABDOMINAL PAIN (3) Leukocytosis Current Visit: Yes Status: Acute Code(s): D72.829 - ELEVATED WHITE BLOOD CELL COUNT, UNSPECIFIED (4) Hyperlipidemia Current Visit: Yes Status: Acute Code(s): E78.5 - HYPERLIPIDEMIA, UNSPECIFIED (5) Pulmonary fibrosis Current Visit: Yes Status: Acute Code(s): J84.10 - PULMONARY FIBROSIS, UNSPECIFIED (6) HTN (hypertension) Current Visit: Yes Status: Chronic Assessment & Plan: (1) Elevated amylase and lipase Current Visit: Yes Status: Acute Assessment & Plan: - Amylase 271, lipase 1993 - lipid panel- reviewed - US gallbladder: Impression: Borderline gallbladder wall thickening without cholelithiasis. Rule out chronic acalculous cholecystitis. Remaining gallbladder sonogram is negative. - Surgery consulted - NS @ 150 ml/hr - NPO - + LUQ pain - Consider ERCP - Narcotic pain control - A1C 5.57 Code(s): R74.8 - ABNORMAL LEVELS OF OTHER SERUM ENZYMES (2) Abdominal pain Current Visit: Yes Status: Acute Assessment & Plan: - LUQ pain - CT abd/pelvis: Impression: Chronic findings including pulmonary fibrosis/scarring, right renal cyst, arteriosclerotic disease, hiatal hernia, colonic diverticulosis, and chronic bony findings. No acute findings on this noncontrast exam. - CBC, CMP reviewed Code(s): R10.9 - UNSPECIFIED ABDOMINAL PAIN (3) Leukocytosis Current Visit: Yes Status: Acute Assessment & Plan: - 2:2 elevated amylase, lipase - WBC 9.5 - Consider antibiotics Code(s): D72.829 - ELEVATED WHITE BLOOD CELL COUNT, UNSPECIFIED (4) Hyperlipidemia Current Visit: Yes Status: Acute Assessment & Plan: - Cholesterol 219 - LDL 136 - Started Zocor 10mg HS daily Code(s): E78.5 - HYPERLIPIDEMIA, UNSPECIFIED (5) Pulmonary fibrosis Current Visit: Yes Status: Acute Assessment & Plan: - As seen on CT - Will need OP F/U with pulm - RA 97% Code(s): J84.10 - PULMONARY FIBROSIS, UNSPECIFIED (6) HTN (hypertension) Current Visit: Yes Status: Chronic Assessment & Plan: - BP elevated likely 2:2 pain - Resume lisinopril VTE: SCD's PPI: Protonix Next of KIN: D/C plan: 1-2 days Code status: Full Code(s): I10 - ESSENTIAL (PRIMARY) HYPERTENSION Code(s): I10 - ESSENTIAL (PRIMARY) HYPERTENSION
[2024-05-16 05:03] LABS: Hematocrit 44.3 % (40.1-51.0); Mean Cell Volume 97.8 fL (79.0-92.2); Mean Corpuscular Hemoglobin 30.9 pg (25.7-32.2); Mean Corpuscular Hgb Concent. 31.6 g/dL (32.3-36.5); Mean Platelet Volume 10.5 fL (9.4-12.4); Platelet Count 205 x10^3/uL (163-337); Red Blood Count 4.53 x10^6/uL (4.63-6.08); Red Cell Distribution Width 13.3 % (11.6-14.4); White Blood Count 8.1 x10^3/uL (4.23-9.07)
[2024-05-16 05:32] LABS: ALBUMIN 4.1 g/dL (3.5-5.0); ANION GAP 15.2 MEQ/L (5-15); Calcium 8.5 mg/dL (8.4-10.2); Creatinine 1 0.93 mg/dL (0.66-1.25); EST GLOMERULAR FILTRATION RATE 78.5 ML/MIN; Total Protein 6.6 g/dL (6.3-8.2)
--- NOTE | 2024-05-16 09:39 | PCM.NOTE ---
Date and Time: 05/16/24 0933 Subjective Assessment: 05/14/24 is a 89 year old male with PHX of gastroesophageal reflux disease, hypertension, coronary artery disease (CABG and cardiac stent) and is on Plavix. He arrived to ER today with complaints of abdominal pain and nausea. Patient states that yesterday afternoon he ate a [employer] hamburger and then in the early evening he ate meatloaf dinner. At 3:00 this morning he had severe abdominal pain that is generalized but most of the pain now is in the left upper quadrant. He said no nausea/vomiting or diarrhea. He denies chest pain and he denies shortness of breath. He thinks he might of had food poisoning. Lipase [address] abd does not show pancreatitits. US of gallbladder ordered. May need ERCP. IVF started at 150ml/hr. Pt made NPO. WBC 9.5. He reports he does not drink and had never had this before. He does report severe GERD recently and was has an upcoming appointment with Surgery for EGD OP. He denies CP, SOB, N/V/D. 05/15/24 Pt walking in the halls today. He continues to have Abd. pain in upper quadrants. Pain is controlled with narcotic pain medication. He is awaiting surgery consult for recs. He denies any further concerns at this time. 05/16/24 Pt resting in bed. He continues to have LUQ pain, narcotic IV pain meds controlling pain per pt. Lipase 1130, trending down but still elevated. Decreased IVF to 75 ml/hr d/t age and concerns of fluid overload. Pt to have a Hida scan tomorrow per order. He denies CP, SOB, N/V/D. - Review of Systems Constitutional: No Fever, No Chills Eyes: No Symptoms Ears, Nose, & Throat: No Symptoms Respiratory: No Cough, No Short Of Breath Cardiac: No Chest Pain, No Edema, No Syncope Abdominal/Gastrointestinal: Abdominal Pain (LUQ), No Nausea, No Vomiting, No Diarrhea Genitourinary Symptoms: No Dysuria Musculoskeletal: No Back Pain, No Neck Pain Skin: No Rash Neurological: No Dizziness, No Focal Weakness, No Sensory Changes Psychological: No Symptoms Endocrine: No Symptoms Hematologic/Lymphatic: No Symptoms Immunological/Allergic: No Symptoms Objective Exam General Appearance: no apparent distress, alert Neurologic Exam: alert, oriented x 3, cooperative, normal mood/affect, nml cerebellar function, sensation nml, No motor deficits Skin Exam: normal color, warm, dry Eye Exam: PERRL, EOMI, eyes nml inspection Ears, Nose, Throat Exam: normal ENT inspection, pharynx normal, moist mucous membranes Neck Exam: normal inspection, non-tender, supple, full range of motion Respiratory Exam: normal breath sounds, lungs clear, No respiratory distress Cardiovascular Exam: regular rate/rhythm, normal heart sounds Gastrointestinal/Abdomen Exam: soft, tenderness (LUQ), distention, No mass Extremity Exam: normal inspection, normal range of motion Back Exam: normal inspection, normal range of motion, No CVA tenderness, No vertebral tenderness Male Genitalia Exam: deferred Rectal Exam: deferred Objective Data Vital Signs: Vital Signs - 24 hr Temp Pulse Resp BP Pulse Ox 05/16/24 07:38 98.6 F 75 20 157/74 96 05/16/24 04:00 98.2 F 87 20 139/86 95 05/15/24 23:50 97.3 F 81 20 161/74 93 L 05/15/24 20:00 97.6 F 87 18 163/73 95 05/15/24 19:00 95 05/15/24 16:00 97.7 F 92 H 16 149/68 95 05/15/24 11:52 97.7 F 91 H 17 127/64 93 L Pain Assessment - Last Documented Pain Intensity 1 Pain Scale Used 0-10 Pain Scale Intake and Output: Intake & Output 05/13/24 05/14/24 05/15/24 05/16/24 11:59 11:59 11:59 11:59 Intake Total 1339 3305 Output Total 100 Balance 1239 3305 Weight 78.9 kg 78.2 kg Lab Results: Lab Results-Last 24 Hours 05/16/24 05/16/24 05/16/24 Range/Units 04:52 04:52 04:52 WBC 8.1 (4.23-9.07) x10^3/uL RBC 4.53 L (4.63-6.08) x10^6/uL Hgb 14.0 (13.7-17.5) g/dL Hct 44.3 (40.1-51.0) % MCV 97.8 H (79.0-92.2) fL MCH 30.9 (25.7-32.2) pg MCHC 31.6 L (32.3-36.5) g/dL RDW 13.3 (11.6-14.4) % Plt Count 205 (163-337) x10^3/uL MPV 10.5 (9.4-12.4) fL Sodium 141 (135-145) mmol/L Potassium 4.0 (3.5-5.1) mmol/L Chloride 109 H (98-107) mmol/L Carbon Dioxide 21 L (22-30) mmol/L Anion Gap 15.2 H (5-15) MEQ/L BUN 19 (9-20) mg/dL Creatinine 0.93 (0.66-1.25) mg/dL Estimated GFR 78.5 ML/MIN Glucose 79 (74-106) mg/dL Calcium 8.5 (8.4-10.2) mg/dL Total Bilirubin 1.00 (0.2-1.3) mg/dL AST 25 (17-59) U/L ALT 20 (0-50) U/L Alkaline Phosphatase 72 (38-126) U/L Serum Total Protein 6.6 (6.3-8.2) g/dL Albumin 4.1 (3.5-5.0) g/dL Lipase 1130 H (23-300) U/L Radiology Exams: Radiology Procedures Category Date Time Status ABDOMEN AND PELVIS W/0 CONTRAS [CT] Stat Exams 05/14/24 10:08 Completed HIDA-GALL BLADDER [NUCMED] Routine Exams 05/17/24 08:00 Ordered Ultrasound Gallbladder [GALLBLADDER] [US] Routine Exams 05/14/24 14:46 Completed Assessment/Plan (1) Elevated amylase and lipase Current Visit: Yes Status: Acute Code(s): R74.8 - ABNORMAL LEVELS OF OTHER SERUM ENZYMES (2) Abdominal pain Current Visit: Yes Status: Acute Code(s): R10.9 - UNSPECIFIED ABDOMINAL PAIN (3) Leukocytosis Current Visit: Yes Status: Acute Code(s): D72.829 - ELEVATED WHITE BLOOD CELL COUNT, UNSPECIFIED (4) Hyperlipidemia Current Visit: Yes Status: Acute Code(s): E78.5 - HYPERLIPIDEMIA, U NSPECIFIED (5) Pulmonary fibrosis Current Visit: Yes Status: Acute Code(s): J84.10 - PULMONARY FIBROSIS, UNSPECIFIED (6) HTN (hypertension) Current Visit: Yes Status: Chronic Assessment & Plan: (1) Elevated amylase and lipase Current Visit: Yes Status: Acute Assessment & Plan: - Amylase 271, lipase 1993 - lipid panel- reviewed - US gallbladder: Impression: Borderline gallbladder wall thickening without cholelithiasis. Rule out chronic acalculous cholecystitis. Remaining gallbladder sonogram is negative. - Surgery consulted - NS @ 150 ml/hr - NPO - + LUQ pain - Consider ERCP - Narcotic pain control - A1C 5.57 05/16 - lipase 1130- trending down - NS decreased to 75ml/hr - NPO - HIDA scan tomorrow- per order Code(s): R74.8 - ABNORMAL LEVELS OF OTHER SERUM ENZYMES (2) Abdominal pain Current Visit: Yes Status: Acute Assessment & Plan: - LUQ pain - CT abd/pelvis: Impression: Chronic findings including pulmonary fibrosis/scarring, right renal cyst, arteriosclerotic disease, hiatal hernia, colonic diverticulosis, and chronic bony findings. No acute findings on this noncontrast exam. - CBC, CMP reviewed Code(s): R10.9 - UNSPECIFIED ABDOMINAL PAIN (3) Leukocytosis Current Visit: Yes Status: Acute Assessment & Plan: - 2:2 elevated amylase, lipase - WBC 9.5 - Consider antibiotics 05/15 - resolved Code(s): D72.829 - ELEVATED WHITE BLOOD CELL COUNT, UNSPECIFIED (4) Hyperlipidemia Current Visit: Yes Status: Acute Assessment & Plan: - Cholesterol 219 - LDL 136 - Started Zocor 10mg HS daily Code(s): E78.5 - HYPERLIPIDEMIA, UNSPECIFIED (5) Pulmonary fibrosis Current Visit: Yes Status: Acute Assessment & Plan: - As seen on CT - Will need OP F/U with pulm - RA 97% Code(s): J84.10 - PULMONARY FIBROSIS, UNSPECIFIED (6) HTN (hypertension) Current Visit: Yes Status: Chronic Assessment & Plan: - BP elevated likely 2:2 pain - Resume lisinopril VTE: SCD's PPI: Protonix Next of KIN: D/C plan: 1-2 days Code status: Full Code(s): I10 - ESSENTIAL (PRIMARY) HYPERTENSION Code(s): I10 - ESSENTIAL (PRIMARY) HYPERTENSION
[2024-05-16] MEDS: TYLENOL 325 MG PO PRN (10:30)
[2024-05-17 04:52] VITALS: RESP 18
[2024-05-17 05:03] LABS: Hematocrit 40.7 % (40.1-51.0); Hemoglobin 13.2 g/dL (13.7-17.5); Mean Cell Volume 96.7 fL (79.0-92.2); Mean Corpuscular Hemoglobin 31.4 pg (25.7-32.2); Mean Corpuscular Hgb Concent. 32.4 g/dL (32.3-36.5); Mean Platelet Volume 10.5 fL (9.4-12.4); Platelet Count 205 x10^3/uL (163-337); Red Blood Count 4.21 x10^6/uL (4.63-6.08); White Blood Count 8.2 x10^3/uL (4.23-9.07)
[2024-05-17 05:18] LABS: ALBUMIN 3.9 g/dL (3.5-5.0); ANION GAP 16.8 MEQ/L (5-15); BILIRUBIN,TOTAL 1.2 mg/dL (0.2-1.3); Calcium 8.3 mg/dL (8.4-10.2); Creatinine 1 0.79 mg/dL (0.66-1.25); EST GLOMERULAR FILTRATION RATE 84.9 ML/MIN; Potassium 3.9 mmol/L (3.5-5.1); Total Protein 6.1 g/dL (6.3-8.2)
[2024-05-17] MEDS: Dextrose 5% -0.45 NaCl 1000 ML 1,000 ML IV SCH (06:39)
--- NOTE | 2024-05-17 08:40 | PCM.NOTE ---
Date and Time: 05/17/24 0832 Subjective Assessment: 05/14/24 is a 89 year old male with PHX of gastroesophageal reflux disease, hypertension, coronary artery disease (CABG and cardiac stent) and is on Plavix. He arrived to ER today with complaints of abdominal pain and nausea. Patient states that yesterday afternoon he ate a [employer] hamburger and then in the early evening he ate meatloaf dinner. At 3:00 this morning he had severe abdominal pain that is generalized but most of the pain now is in the left upper quadrant. He said no nausea/vomiting or diarrhea. He denies chest pain and he denies shortness of breath. He thinks he might of had food poisoning. Lipase [address] abd does not show pancreatitits. US of gallbladder ordered. May need ERCP. IVF started at 150ml/hr. Pt made NPO. WBC 9.5. He reports he does not drink and had never had this before. He does report severe GERD recently and was has an upcoming appointment with Surgery for EGD OP. He denies CP, SOB, N/V/D. 05/15/24 Pt walking in the halls today. He continues to have Abd. pain in upper quadrants. Pain is controlled with narcotic pain medication. He is awaiting surgery consult for recs. He denies any further concerns at this time. 05/16/24 Pt resting in bed. He continues to have LUQ pain, narcotic IV pain meds controlling pain per pt. Lipase 1130, trending down but still elevated. Decreased IVF to 75 ml/hr d/t age and concerns of fluid overload. Pt to have a Hida scan tomorrow per GS order. He denies CP, SOB, N/V/D. 05/17/24 Pt resting in bed. He continues to have LUQ pain. MRCP ordered and he states he is unable to have this as he has metal in his right shoulder, test cancelled. He is scheduled for a HIDA scan today per surgery orders. IV fluids changed to D5 1/2 NS d/t low glucose reading last night. Fluid rate increased today as Co2 18 and anion gap 16.8. Plan of care will depend on findings of HIDA scan. Pt denies CP, SOB, N/V/D. - Review of Systems Constitutional: No Fever, No Chills Eyes: No Symptoms Ears, Nose, & Throat: No Symptoms Respiratory: No Cough, No Short Of Breath Cardiac: No Chest Pain, No Edema, No Syncope Abdominal/Gastrointestinal: Abdominal Pain (LUQ), No Nausea, No Vomiting, No Diarrhea Genitourinary Symptoms: No Dysuria Musculoskeletal: No Back Pain, No Neck Pain Skin: No Rash Neurological: No Dizziness, No Focal Weakness, No Sensory Changes Psychological: No Symptoms Endocrine: No Symptoms Hematologic/Lymphatic: No Symptoms Immunological/Allergic: No Symptoms Objective Exam General Appearance: no apparent distress, alert Neurologic Exam: alert, oriented x 3, cooperative, normal mood/affect, nml cerebellar function, sensation nml, No motor deficits Skin Exam: normal color, warm, dry Eye Exam: PERRL, EOMI, eyes nml inspection Ears, Nose, Throat Exam: normal ENT inspection, pharynx normal, moist mucous membranes Neck Exam: normal inspection, non-tender, supple, full range of motion Respiratory Exam: normal breath sounds, lungs clear, No respiratory distress Cardiovascular Exam: regular rate/rhythm, normal heart sounds, edema (BLLE) Gastrointestinal/Abdomen Exam: soft, tenderness (LUQ with palpation), No mass Extremity Exam: normal inspection, normal range of motion Back Exam: normal inspection, normal range of motion, No CVA tenderness, No vertebral tenderness Male Genitalia Exam: deferred Rectal Exam: deferred Objective Data Vital Signs: Vital Signs - 24 hr Temp Pulse Resp BP Pulse Ox 05/17/24 08:00 97.3 F 66 18 172/80 96 05/17/24 04:00 98.0 F 75 18 149/63 96 05/17/24 00:00 97.8 F 76 20 155/67 95 05/16/24 19:50 97.6 F 75 18 125/58 96 05/16/24 19:00 96 05/16/24 15:56 97.9 F 78 20 148/53 97 05/16/24 12:00 97.9 F 69 18 150/70 94 L Pain Assessment - Last Documented Pain Intensity 5 Pain Scale Used [facility] Intake and Output: Intake & Output 05/14/24 05/15/24 05/16/24 05/17/24 11:59 11:59 11:59 11:59 Intake Total 1339 3305 1982 Output Total 100 Balance 1239 3305 1982 Weight 78.9 kg 78.2 kg Lab Results: Lab Results-Last 24 Hours 05/17/24 05/17/24 05/17/24 Range/Units 04:30 04:30 06:30 WBC 8.2 (4.23-9.07) x10^3/uL RBC 4.21 L (4.63-6.08) x10^6/uL Hgb 13.2 L (13.7-17.5) g/dL Hct 40.7 (40.1-51.0) % MCV 96.7 H (79.0-92.2) fL MCH 31.4 (25.7-32.2) pg MCHC 32.4 (32.3-36.5) g/dL RDW 13.0 (11.6-14.4) % Plt Count 205 (163-337) x10^3/uL MPV 10.5 (9.4-12.4) fL Sodium 140 (135-145) mmol/L Potassium 3.9 (3.5-5.1) mmol/L Chloride 109 H (98-107) mmol/L Carbon Dioxide 18 L (22-30) mmol/L Anion Gap 16.8 H (5-15) MEQ/L BUN 19 (9-20) mg/dL Creatinine 0.79 (0.66-1.25) mg/dL Estimated GFR 84.9 ML/MIN Glucose 67 L (74-106) mg/dL POC Glucometer 61 L (74 to 106) mg/dL Calcium 8.3 L (8.4-10.2) mg/dL Total Bilirubin 1.20 (0.2-1.3) mg/dL AST 30 (17-59) U/L ALT 20 (0-50) U/L Alkaline Phosphatase 75 (38-126) U/L Serum Total Protein 6.1 L (6.3-8.2) g/dL Albumin 3.9 (3.5-5.0) g/dL Radiology Exams: Radiology Procedures Category Date Time Status HIDA-GALL BLADDER [NUCMED] Routine Exams 05/17/24 08:00 Ordered MRI ABD W/O CONTRAST [MRI] Routine Exams 05/17/24 07:00 Stop Req Medications: Medications Generic Name Dose Route Start Last Admin Trade Name Freq PRN Reason Stop Dose Admin Acetaminophen 650 mg 05/14/24 14:20 05/16/24 10:30 Acetaminophen 325 Mg Tablet PO 06/13/24 14:19 650 mg Q6H PRN PRN Administration PAIN, FEVER, HEADACHE Hydromorphone HCl 1 mg 05/14/24 14:48 05/17/24 04:20 Hydromorphone 1 Mg/1ml Inj IV 05/19/24 14:47 1 mg Q4H PRN PRN Administration PAIN Dextrose/Sodium Chloride 1,000 mls @ 100 mls/hr 05/17/24 06:45 05/17/24 06:39 Dextrose 5% -0.45 Nacl 1000 Ml IV 06/16/24 06:44 75 mls/hr .Q10H DAO Administration Isosorbide Mononitrate 30 mg 05/15/24 10:00 05/16/24 10:13 Isosorbide Mononitrate 30 Mg Tab PO 06/14/24 09:59 30 mg DAILY DAO Administration Lisinopril 10 mg 05/15/24 10:00 05/16/24 10:13 Lisinopril 10 Mg Tablet PO 06/14/24 09:59 10 mg DAILY DAO Administration Ondansetron HCl 4 mg 05/14/24 14:20 05/16/24 03:06 Ondansetron Hcl 4 Mg/2 Ml Vial IV 06/13/24 14:19 4 mg Q6H PRN PRN Administration NAUSEA/VOMITING Pantoprazole Sodium 40 mg 05/15/24 10:00 05/16/24 10:13 Pantoprazole 40 Mg Vial IV 06/14/24 09:59 40 mg DAILY DAO Administration Simvastatin 10 mg 05/14/24 22:00 05/16/24 22:38 Simvastatin 10 Mg Tablet PO 06/13/24 21:59 10 mg HS DAO Administration Discontinued Medications Generic Name Dose Route Start Last Admin Trade Name Freq PRN Reason Stop Dose Admin Sodium Chloride 1,000 mls @ 75 mls/hr 05/14/24 10:15 05/16/24 16:59 Sodium Chloride 0.9% 1000 Ml IV 06/13/24 10:14 75 mls/hr .[id number] DAO Administration Morphine Sulfate 4 mg 05/14/24 10:14 05/14/24 10:21 Morphine Sulfate 4 Mg/Ml Injection IV 05/14/24 10:15 4 mg STAT ONE Administration Morphine Sulfate Confirm 05/14/24 10:20 Morphine Sulfate 4 Mg/Ml Injection Administered 05/14/24 10:21 Dose 4 mg .ROUTE .STK-MED ONE Morphine Sulfate 2 mg 05/14/24 13:18 05/14/24 13:23 Morphine Sulfate 2 Mg/Ml Inj IV 05/14/24 13:19 2 mg STAT ONE Administration Morphine Sulfate Confirm 05/14/24 13:20 Morphine Sulfate 2 Mg/Ml Inj Administered 05/14/24 13:21 Dose 2 mg .ROUTE .STK-MED ONE Morphine Sulfate 2 mg 05/14/24 14:18 Morphine Sulfate 2 Mg/Ml Inj IV 05/19/24 14:17 Q4H PRN PRN SEVERE PAIN Ondansetron HCl 4 mg 05/14/24 10:08 05/14/24 10:13 Ondansetron Hcl 4 Mg/2 Ml Vial IV 05/14/24 10:09 4 mg STAT ONE Administration Ondansetron HCl Confirm 05/14/24 10:11 Ondansetron Hcl 4 Mg/2 Ml Vial Administered 05/14/24 10:12 Dose 4 mg .ROUTE .STK-MED ONE Pantoprazole Sodium 40 mg 05/14/24 10:08 05/14/24 10:13 Pantoprazole 40 Mg Vial IV 05/14/24 10:09 40 mg STAT ONE Administration Pantoprazole Sodium Confirm 05/14/24 10:11 Pantoprazole 40 Mg Vial Administered 05/14/24 10:12 Dose 40 mg IV .STK-MED ONE Multi-Disciplinary Progress Notes: Multi-Disciplinary Progress Notes 05/16/24 12:03 Case Management Note by Tena Sanders S/W PATIENT. HE CONTINUES TO DENY ANY NEW NEEDS AT TIME OF DC. HE PLANS TO BRING BACK HOME FROM RESPITE CARE AT THE [facility] AFTER HIS DC FROM HOSPITAL. Initialized on 05/16/24 12:03 - END OF NOTE Assessment/Plan (1) Elevated amylase and lipase Current Visit: Yes Status: Acute Code(s): R74.8 - ABNORMAL LEVELS OF OTHER SERUM ENZYMES (2) Abdominal pain Current Visit: Yes Status: Acute Code(s): R10.9 - UNSPECIFIED ABDOMINAL PAIN (3) Leukocytosis Current Visit: Yes Status: Acute Code(s): D72.829 - ELEVATED WHITE BLOOD CELL COUNT, UNSPECIFIED (4) Hyperlipidemia Current Visit: Yes Status: Acute Code(s): E78.5 - HYPERLIPIDEMIA, UNSPECIFIED (5) Pulmonary fibrosis Current Visit: Yes Status: Acute Code(s): J84.10 - PULMONARY FIBROSIS, UNSPECIFIED (6) HTN (hypertension) Current Visit: Yes Status: Chronic Assessment & Plan: (1) Elevated amylase and lipase Current Visit: Yes Status: Acute Assessment & Plan: - Amylase 271, lipase 1993 - lipid panel- reviewed - US gallbladder: Impression: Borderline gallbladder wall thickening without cholelithiasis. Rule out chronic acalculous cholecystitis. Remaining gallbladder sonogram is negative. - Surgery consulted - NS @ 150 ml/hr - NPO - + LUQ pain - Consider ERCP - Narcotic pain control - A1C 5.57 05/16 - Lipase 1130- trending down - NS decreased to 75ml/hr - NPO - HIDA scan tomorrow- per GS order 05/17 - Pt unable to have MRCP as he has metal in his left shoulder - HIDA scan pending - Continued LUQ pain - IVF changed to D5 /2 NS at 100 ml/hr Code(s): R74.8 - ABNORMAL LEVELS OF OTHER SERUM ENZYMES (2) Abdominal pain Current Visit: Yes Status: Acute Assessment & Plan: - LUQ pain - CT abd/pelvis: Impression: Chronic findings including pulmonary fibrosis/scarring, right renal cyst, arteriosclerotic disease, hiatal hernia, colonic diverticulosis, and chronic bony findings. No acute findings on this noncontrast exam. - CBC, CMP reviewed Code(s): R10.9 - UNSPECIFIED ABDOMINAL PAIN (3) Leukocytosis Current Visit: Yes Status: Acute Assessment & Plan: - 2:2 elevated amylase, lipase - WBC 9.5 - Consider antibiotics 05/15 - resolved Code(s): D72.829 - ELEVATED WHITE BLOOD CELL COUNT, UNSPECIFIED (4) Hyperlipidemia Current Visit: Yes Status: Acute Assessment & Plan: - Cholesterol 219 - LDL 136 - Started Zocor 10mg HS daily Code(s): E78.5 - HYPERLIPIDEMIA, UNSPECIFIED (5) Pulmonary fibrosis Current Visit: Yes Status: Acute Assessment & Plan: - As seen on CT - Will need OP F/U with pulm - RA 97% Code(s): J84.10 - PULMONARY FIBROSIS, UNSPECIFIED (6) HTN (hypertension) Current Visit: Yes Status: Chronic Assessment & Plan: - BP elevated likely 2:2 pain - Resume lisinopril Code(s): I10 - ESSENTIAL (PRIMARY) HYPERTENSION (7) Metabolic acidosis Current Visit: Yes Status: Acute Assessment & Plan: - CO2 18 - IVF increased to 100 as pt is NPO Code(s): E87.20 - ACIDOSIS, UNSPECIFIED (8) Mild dehydration Current Visit: Yes Status: Acute Assessment & Plan: - Anion gap 16.8 - IVF - Pt NPO VTE: SCD's PPI: Protonix Next of KIN: D/C plan: 1-2 days Code status: Full Code(s): E86.0 - DEHYDRATION
--- NOTE | 2024-05-17 10:37 | CONS ---
HISTORY: The patient presented with his first major episode of upper abdominal discomfort to his back. He thought he was having a heart attack recently. His ultrasound is indeterminant. He is getting a HIDA scan on . His amylase was elevated at 1200. He was seen and examined at bedside. He is having a little discomfort but he is still alert and basically carries a good conversation. 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 The patient has been doing great medically in general. He is 89 years old. He has had very little in the way of surgery, very little in the way of medical conditions. This seemed quite real and his amylase certainly is real. PHYSICAL EXAMINATION: At this time, his abdomen is soft and not particularly massive. There is slight tenderness in the upper abdomen. He is not jaundiced. LABORATORY: His labs are reasonable. IMAGING: His CT scan was normal. His ultrasound as noted. IMPRESSION AND PLAN: We are waiting on 's HIDA scan. I am suspecting cholesterolosis of the gallbladder here. The small particles that are passing causes his pancreatitis. He is not drinking. He has no change in medicines recently. He has no reason to have a pancreatitis other than biliary. Yes, I think this is a biliary pancreatitis secondary to small material from the gallbladder. We are getting a HIDA scan .
--- NOTE | 2024-05-17 14:24 | XRAY ---
Indication: Abdominal pain. Cholecystitis. Borderline gallbladder wall thickening on sonogram. Comparison: None Patient received 5.3 mCi technetium 99 Choletec. Immediate anterior planar imaging was performed for 60 minutes. Normal hepatic activity on first image. Normal biliary activity within 20 minutes. Normal biliary to bowel activity within 30 minutes. Normal gallbladder activity within 50 minutes. Patient then received 1.5 µg of IV CCK slowly. Ejection fraction calculated 26%, low. Impression: 1. HIDA scan portion of exam is normal. 2. Low ejection fraction 26%. Rule out chronic cholecystitis.
--- NOTE | 2024-05-17 15:17 | PCM.NOTE ---
Date and Time: 05/17/24 1515 Objective Data Vital Signs: Vital Signs - 24 hr Temp Pulse Resp BP Pulse Ox 05/17/24 12:00 97.7 F 66 18 189/81 95 05/17/24 08:00 97.3 F 66 18 172/80 96 05/17/24 04:00 98.0 F 75 18 149/63 96 05/17/24 00:00 97.8 F 76 20 155/67 95 05/16/24 19:50 97.6 F 75 18 125/58 96 05/16/24 19:00 96 05/16/24 15:56 97.9 F 78 20 148/53 97 Pain Assessment - Last Documented Pain Intensity 4 Pain Scale Used 0-10 Pain Scale Intake and Output: Intake & Output 05/15/24 05/16/24 05/17/24 05/18/24 11:59 11:59 11:59 11:59 Intake Total 1339 3305 1982 Output Total 100 Balance 1239 3305 1982 Weight 78.2 kg 78.2 kg Lab Results: Lab Results-Last 24 Hours 05/17/24 05/17/24 05/17/24 Range/Units 04:30 04:30 06:30 WBC 8.2 (4.23-9.07) x10^3/uL RBC 4.21 L (4.63-6.08) x10^6/uL Hgb 13.2 L (13.7-17.5) g/dL Hct 40.7 (40.1-51.0) % MCV 96.7 H (79.0-92.2) fL MCH 31.4 (25.7-32.2) pg MCHC 32.4 (32.3-36.5) g/dL RDW 13.0 (11.6-14.4) % Plt Count 205 (163-337) x10^3/uL MPV 10.5 (9.4-12.4) fL Sodium 140 (135-145) mmol/L Potassium 3.9 (3.5-5.1) mmol/L Chloride 109 H (98-107) mmol/L Carbon Dioxide 18 L (22-30) mmol/L Anion Gap 16.8 H (5-15) MEQ/L BUN 19 (9-20) mg/dL Creatinine 0.79 (0.66-1.25) mg/dL Estimated GFR 84.9 ML/MIN Glucose 67 L (74-106) mg/dL POC Glucometer 61 L (74 to 106) mg/dL Calcium 8.3 L (8.4-10.2) mg/dL Total Bilirubin 1.20 (0.2-1.3) mg/dL AST 30 (17-59) U/L ALT 20 (0-50) U/L Alkaline Phosphatase 75 (38-126) U/L Serum Total Protein 6.1 L (6.3-8.2) g/dL Albumin 3.9 (3.5-5.0) g/dL Radiology Exams: Radiology Procedures Category Date Time Status HEPATOBILIARY W/CCK [NUCMED] Routine Exams 05/17/24 08:00 Completed Medications: Medications Generic Name Dose Route Start Last Admin Trade Name Freq PRN Reason Stop Dose Admin Acetaminophen 650 mg 05/14/24 14:20 05/16/24 10:30 Acetaminophen 325 Mg Tablet PO 06/13/24 14:19 650 mg Q6H PRN PRN Administration PAIN, FEVER, HEADACHE Hydromorphone HCl 1 mg 05/14/24 14:48 05/17/24 14:29 Hydromorphone 1 Mg/1ml Inj IV 05/19/24 14:47 1 mg Q4H PRN PRN Administration PAIN Dextrose/Sodium Chloride 1,000 mls @ 100 mls/hr 05/17/24 06:45 05/17/24 06:39 Dextrose 5% -0.45 Nacl 1000 Ml IV 06/16/24 06:44 75 mls/hr .Q10H DAO Administration Isosorbide Mononitrate 30 mg 05/15/24 10:00 05/17/24 10:17 Isosorbide Mononitrate 30 Mg Tab PO 06/14/24 09:59 30 mg DAILY DAO Administration Lisinopril 10 mg 05/15/24 10:00 05/17/24 10:17 Lisinopril 10 Mg Tablet PO 06/14/24 09:59 10 mg DAILY DAO Administration Ondansetron HCl 4 mg 05/14/24 14:20 05/16/24 03:06 Ondansetron Hcl 4 Mg/2 Ml Vial IV 06/13/24 14:19 4 mg Q6H PRN PRN Administration NAUSEA/VOMITING Pantoprazole Sodium 40 mg 05/15/24 10:00 05/17/24 10:17 Pantoprazole 40 Mg Vial IV 06/14/24 09:59 40 mg DAILY DAO Administration Simvastatin 10 mg 05/14/24 22:00 05/16/24 22:38 Simvastatin 10 Mg Tablet PO 06/13/24 21:59 10 mg HS DAO Administration Discontinued Medications Generic Name Dose Route Start Last Admin Trade Name Freq PRN Reason Stop Dose Admin Sodium Chloride 1,000 mls @ 75 mls/hr 05/14/24 10:15 05/16/24 16:59 Sodium Chloride 0.9% 1000 Ml IV 06/13/24 10:14 75 mls/hr .[id number] DAO Administration Morphine Sulfate 4 mg 05/14/24 10:14 05/14/24 10:21 Morphine Sulfate 4 Mg/Ml Injection IV 05/14/24 10:15 4 mg STAT ONE Administration Morphine Sulfate Confirm 05/14/24 10:20 Morphine Sulfate 4 Mg/Ml Injection Administered 05/14/24 10:21 Dose 4 mg .ROUTE .STK-MED ONE Morphine Sulfate 2 mg 05/14/24 13:18 05/14/24 13:23 Morphine Sulfate 2 Mg/Ml Inj IV 05/14/24 13:19 2 mg STAT ONE Administration Morphine Sulfate Confirm 05/14/24 13:20 Morphine Sulfate 2 Mg/Ml Inj Administered 05/14/24 13:21 Dose 2 mg .ROUTE .STK-MED ONE Morphine Sulfate 2 mg 05/14/24 14:18 Morphine Sulfate 2 Mg/Ml Inj IV 05/19/24 14:17 Q4H PRN PRN SEVERE PAIN Ondansetron HCl 4 mg 05/14/24 10:08 05/14/24 10:13 Ondansetron Hcl 4 Mg/2 Ml Vial IV 05/14/24 10:09 4 mg STAT ONE Administration Ondansetron HCl Confirm 05/14/24 10:11 Ondansetron Hcl 4 Mg/2 Ml Vial Administered 05/14/24 10:12 Dose 4 mg .ROUTE .STK-MED ONE Pantoprazole Sodium 40 mg 05/14/24 10:08 05/14/24 10:13 Pantoprazole 40 Mg Vial IV 05/14/24 10:09 40 mg STAT ONE Administration Pantoprazole Sodium Confirm 05/14/24 10:11 Pantoprazole 40 Mg Vial Administered 05/14/24 10:12 Dose 40 mg IV .STK-MED ONE Multi-Disciplinary Progress Notes: Multi-Disciplinary Progress Notes 05/17/24 10:03 Case Management Note by Roopa Valles S/W PATIENT- HE CONTINUES TO DENY ANY NEW NEEDS AT TIME OF DC. HE PLANS TO RETURN HOME TO HIS PLF Initialized on 05/17/24 10:03 - END OF NOTE Assessment/Plan (1) Acute pancreatitis Current Visit: Yes Status: Acute Assessment & Plan: S: no acute issues overnight. is still taking dilaudid for pain though. no n/v. + flatus. no bm. last bm 3 days ago. o nad nonlabreod resps nd, soft, mild ttp left mid abd. no r/g. mod edema hida decreased EF. a/p: 89yo pancreatitis unclear etiology. US/ct without stones/sludge. hida nonobstructive reduced EF. this is her first episode. discussed with patient option of cholecyectomy but really this is not clearly gallstone pancreatitis so there might not be any benefit. he doesn't want to pursue that at this time. -diet as tolerated. -laxative. -f/u 2 weeks in office. Code(s): K85.90 - ACUTE PANCREATITIS WITHOUT NECROSIS OR INFECTION, UNSP
[2024-05-17 17:02] VITALS: BP 187/81; PULSE 78; TEMP 97.3
[2024-05-17] MEDS ORDERED: Docusate Sodium 100 MG PO SCH (17:45)
--- NOTE | 2024-05-17 17:59 | PCM.DS ---
Discharge Summary Date of Admission: 05/15/24 13:20 Date of Discharge: 05/17/24 Admitting Physician: JOSE MENDOZA MD Consults: Consults on Case 05/14/24 17:00 Consult Surgery ROUTINE Primary Care Provider: TRISTON LEBLANC Allergies Allergies mexiletine [From Mexitil] Allergy (Mild, Verified 05/14/24 09:42) Rash morphine [From [place]] Allergy (Mild, Verified 05/14/24 09:42) Rash Hospital Summary - Hospital Course Hospital Course: 05/14/24 is a 89 year old male with PHX of gastroesophageal reflux disease, hypertension, coronary artery disease (CABG and cardiac stent) and is on Plavix. He arrived to ER today with complaints of abdominal pain and nausea. Patient states that yesterday afternoon he ate a [employer] hamburger and then in the early evening he ate meatloaf dinner. At 3:00 this morning he had severe abdominal pain that is generalized but most of the pain now is in the left upper quadrant. He said no nausea/vomiting or diarrhea. He denies chest pain and he denies shortness of breath. He thinks he might of had food poisoning. Lipase [address] abd does not show pancreatitits. US of gallbladder ordered. May need ERCP. IVF started at 150ml/hr. Pt made NPO. WBC 9.5. He reports he does not drink and had never had this before. He does report severe GERD recently and was has an upcoming appointment with Surgery for EGD OP. He denies CP, SOB, N/V/D. 05/15/24 Pt walking in the halls today. He continues to have Abd. pain in upper quadrants. Pain is controlled with narcotic pain medication. He is awaiting surgery consult for recs. He denies any further concerns at this time. 05/16/24 Pt resting in bed. He continues to have LUQ pain, narcotic IV pain meds controlling pain per pt. Lipase 1130, trending down but still elevated. Decreased IVF to 75 ml/hr d/t age and concerns of fluid overload. Pt to have a Hida scan tomorrow per order. He denies CP, SOB, N/V/D. 05/17/24 Pt resting in bed. He continues to have LUQ pain. MRCP ordered and he states he is unable to have this as he has metal in his right shoulder, test cancelled. He is scheduled for a HIDA scan today per surgery orders. IV fluids changed to D5 1/2 NS d/t low glucose reading last night. Fluid rate increased today as Co2 18 and anion gap 16.8. Plan of care will depend on findings of HIDA scan. Pt denies CP, SOB, N/V/D. Surgery consulted and explained pt is ok to go home and may eat. Pt did eat and tolerated food well without concern.No surgery needed at this time. HIDA scan did show:Low ejection fraction 26%..Rule out chronic cholecystitis. Nursing to discuss with pt not to eat fatty foods as this may again cause a gallbladder attack. Advised pt to go to ER if he has repeat abd. pain and concerns as he may need ERCP, and gallbladder removed. . - Vitals & Intake/Output Vital Signs: Vital Signs Temperature 97.3 F 05/17/24 16:00 Pulse Rate 78 05/17/24 16:00 Respiratory Rate 18 05/17/24 16:00 Blood Pressure 187/81 05/17/24 16:00 O2 Sat by Pulse Oximetry 95 05/17/24 16:00 Intake & Output: Intake & Output 05/15/24 05/16/24 05/17/24 05/18/24 11:59 11:59 11:59 11:59 Intake Total 1339 3305 1982 120 Output Total 100 Balance 1239 3305 1982 120 Weight 78.2 kg 78.2 kg - Lab Result Diagrams: 05/17/24 04:30 05/17/24 04:30 Lab Results-Last 24 Hrs: Lab Results-Last 24 Hours 05/17/24 05/17/24 05/17/24 Range/Units 04:30 04:30 06:30 WBC 8.2 (4.23-9.07) x10^3/uL RBC 4.21 L (4.63-6.08) x10^6/uL Hgb 13.2 L (13.7-17.5) g/dL Hct 40.7 (40.1-51.0) % MCV 96.7 H (79.0-92.2) fL MCH 31.4 (25.7-32.2) pg MCHC 32.4 (32.3-36.5) g/dL RDW 13.0 (11.6-14.4) % Plt Count 205 (163-337) x10^3/uL MPV 10.5 (9.4-12.4) fL Sodium 140 (135-145) mmol/L Potassium 3.9 (3.5-5.1) mmol/L Chloride 109 H (98-107) mmol/L Carbon Dioxide 18 L (22-30) mmol/L Anion Gap 16.8 H (5-15) MEQ/L BUN 19 (9-20) mg/dL Creatinine 0.79 (0.66-1.25) mg/dL Estimated GFR 84.9 ML/MIN Glucose 67 L (74-106) mg/dL POC Glucometer 61 L (74 to 106) mg/dL Calcium 8.3 L (8.4-10.2) mg/dL Total Bilirubin 1.20 (0.2-1.3) mg/dL AST 30 (17-59) U/L ALT 20 (0-50) U/L Alkaline Phosphatase 75 (38-126) U/L Serum Total Protein 6.1 L (6.3-8.2) g/dL Albumin 3.9 (3.5-5.0) g/dL - Radiology Exams Ordered Rad Exams-Entire Visit: Radiology Procedures Category Date Time Status HEPATOBILIARY W/CCK [NUCMED] Routine Exams 05/17/24 08:00 Completed Discharge Exam General Appearance: no apparent distress, alert Neurologic Exam: alert, oriented x 3, cooperative, normal mood/affect, nml cerebellar function, sensation nml, No motor deficits Eye Exam: PERRL, EOMI, eyes nml inspection Ears, Nose, Throat Exam: normal ENT inspection, pharynx normal, moist mucous membranes Neck Exam: normal inspection, non-tender, supple, full range of motion Respiratory Exam: normal breath sounds, lungs clear, No respiratory distress Cardiovascular Exam: regular rate/rhythm, normal heart sounds Gastrointestinal/Abdomen Exam: soft, No tenderness, No mass Male Genitalia Exam: deferred Rectal Exam: deferred Back Exam: normal inspection, normal range of motion, No CVA tenderness, No vertebral tenderness Extremity Exam: normal inspection, normal range of motion Skin Exam: normal color, warm, dry Final Diagnosis/Problem List - Final Discharge Diagnosis/Problem (1) Elevated amylase and lipase Current Visit: Yes Status: Acute Code(s): R74.8 - ABNORMAL LEVELS OF OTHER SERUM ENZYMES (2) Abdominal pain Current Visit: Yes Status: Acute Code(s): R10.9 - UNSPECIFIED ABDOMINAL PAIN (3) Leukocytosis Current Visit: Yes Status: Acute Code(s): D72.829 - ELEVATED WHITE BLOOD CELL COUNT, UNSPECIFIED (4) Hyperlipidemia Current Visit: Yes Status: Acute Code(s): E78.5 - HYPERLIPIDEMIA, UNSPECIFIED (5) Pulmonary fibrosis Current Visit: Yes Status: Acute Code(s): J84.10 - PULMONARY FIBROSIS, UNSPECIFIED (6) HTN (hypertension) Current Visit: Yes Status: Chronic Code(s): I10 - ESSENTIAL (PRIMARY) HYPERTENSION (7) Metabolic acidosis Current Visit: Yes Status: Acute Code(s): E87.20 - ACIDOSIS, UNSPECIFIED (8) Mild dehydration Current Visit: Yes Status: Acute Assessment & Plan: (1) Elevated amylase and lipase Current Visit: Yes Status: Acute Assessment & Plan: - Amylase 271, lipase 1993 - lipid panel- reviewed - US gallbladder: Impression: Borderline gallbladder wall thickening without cholelithiasis. Rule out chronic acalculous cholecystitis. Remaining gallbladder sonogram is negative. - Surgery consulted - NS @ 150 ml/hr - NPO - + LUQ pain - Consider ERCP - Narcotic pain control - A1C 5.57 05/16 - Lipase 1130- trending down - NS decreased to 75ml/hr - NPO - HIDA scan tomorrow- per GS order 05/17 - Pt unable to have MRCP as he has metal in his left shoulder - HIDA scan reviewed - Continued LUQ pain - IVF changed to D5 1/2 NS at 100 ml/hr - Pt allowed to eat per surgery and tolerated well - Ok to d/c per surgery recs Code(s): R74.8 - ABNORMAL LEVELS OF OTHER SERUM ENZYMES (2) Abdominal pain Current Visit: Yes Status: Acute Assessment & Plan: - LUQ pain - CT abd/pelvis: Impression: Chronic findings including pulmonary fibrosis/scarring, right renal cyst, arteriosclerotic disease, hiatal hernia, colonic diverticulosis, and chronic bony findings. No acute findings on this noncontrast exam. - CBC, CMP reviewed Code(s): R10.9 - UNSPECIFIED ABDOMINAL PAIN (3) Leukocytosis Current Visit: Yes Status: Acute Assessment & Plan: - 2:2 elevated amylase, lipase - WBC 9.5 - Consider antibiotics 05/15 - resolved Code(s): D72.829 - ELEVATED WHITE BLOOD CELL COUNT, UNSPECIFIED (4) Hyperlipidemia Current Visit: Yes Status: Acute Assessment & Plan: - Cholesterol 219 - LDL 136 - Started Zocor 10mg HS daily Code(s): E78.5 - HYPERLIPIDEMIA, UNSPECIFIED (5) Pulmonary fibrosis Current Visit: Yes Status: Acute Assessment & Plan: - As seen on CT - Will need OP F/U with pulm - RA 97% Code(s): J84.10 - PULMONARY FIBROSIS, UNSPECIFIED (6) HTN (hypertension) Current Visit: Yes Status: Chronic Assessment & Plan: - BP elevated likely 2:2 pain - Resume lisinopril Code(s): I10 - ESSENTIAL (PRIMARY) HYPERTENSION (7) Metabolic acidosis Current Visit: Yes Status: Acute Assessment & Plan: - CO2 18 - IVF increased to 100 as pt is NPO Code(s): E87.20 - ACIDOSIS, UNSPECIFIED (8) Mild dehydration Current Visit: Yes Status: Acute Assessment & Plan: - Anion gap 16.8 - IVF Code(s): E86.0 - DEHYDRATION - Discharge Discharge Date: 05/17/24 Disposition: Home, Self-Care Condition: Stable Prescriptions: New Ondansetron ODT 4 MG [Zofran Odt 4 mg] 4 mg PO Q6H PRN PRN #10 tablet PRN Reason: Vomiting Simvastatin 10 mg [Zocor 10MG] 10 mg PO HS 30 Days #30 tablet Continue Lisinopril 10 mg [Zestril 10 MG] 10 mg PO DAILY Isosorbide Mononitrate 30 mg [Imdur 30 MG] 30 mg PO DAILY Omeprazole 20 mg PO DAILY Instructions: HIDA scan, Pancreatitis - Discharge instructions, Gallstones, High cholesterol Additional Instructions: PLease follow up with Dr. Leblanc next week. Do not eat fatty foods. Follow up with: TRISTON LEBLANC MD [Primary Care Provider] -
[2024-05-17 19:00] VITALS: O2SAT 97
[2024-05-18] MEDS ORDERED: Docusate Sodium 100 MG PO SCH (10:00)
== END 2024-05-17 19:55 | disposition home or self-care (01) | DRG 947 ==
LOC: ED 09:30 → MED SURG 14:10 → OBSVTOIN 05-15 13:20
PROVIDERS: ADMIT Internal Medicine; ATTEND Internal Medicine
DX: R74.8 Abnormal levels of other serum enzymes (principal); K85.90 Acute pancreatitis without necrosis or infection, unspecified; E87.20 Acidosis, unspecified; R10.9 Unspecified abdominal pain; R11.0 Nausea; Z79.01 Long term (current) use of anticoagulants; Z95.1 Presence of aortocoronary bypass graft; Z79.899 Other long term (current) drug therapy; D72.89 Other specified disorders of white blood cells; E86.0 Dehydration; D73.89 Other diseases of spleen; E78.5 Hyperlipidemia, unspecified; J84.10 Pulmonary fibrosis, unspecified; I10 Essential (primary) hypertension
CPT/HCPCS: 0241U; 36415; 74176; 76705; 78227; 80053; 80061; 81015; 82150; 82947; 83036; 83605; 83690; 83721; 85025; 85027; 96360; 96361; 96374; 96375; 99285; A9537; G0378; Q3014; J1171; J2270; J2405; A9270-GY

== ENCOUNTER 2024-05-19 10:34 | Emergency (ER) | payer MEDICARE, OTHER ==
--- NOTE | 2024-05-19 10:44 | ERPHSYRPT ---
- History of Present Illness Time Seen by Provider: 05/19/24 10:44 Source: patient, family Exam Limitations: no limitations Physician History: This is an 89-year-old white male patient who arrives by private vehicle, driving himself to the emergency department secondary to intermittent abdominal pain. Patient's primary care provider is Dr. Leblanc. Patient denies chest pain and he denies shortness of breath. I evaluated this patient in the emergency department on 05/15/2024 and he was placed in observation in the hospital with a clinical impression of mild dehydration and acute pancreatitis. He stayed in the hospital approximately 3 to 4 days and was discharged to home. He had no pain at the time of his discharge to home. However, several hours later, at home, he began having similar pain which has since been intermittent. He has eaten grilled cheese sandwich. He has not had any nausea vomiting or diarrhea symptoms. Patient states he is here today simply to get a prescription for pain medication. He states, and is correct upon reviewing the discharge summary and instructions from the recent admission, they did not provide him with any pain medication prescription. Patient has a history of hyperlipidemia, hypertension, gastroesophageal reflux disease and coronary artery disease. Timing/Duration: yesterday, intermittent Severity: mild (To moderate) Associated Symptoms: abdominal pain (Periumbilical and left of midline abdominal pain), No shortness of breath, No chest pain Allergies/Adverse Reactions: mexiletine [From Mexitil] Allergy (Mild, Verified 05/14/24 09:42) Rash Home Medications: Isosorbide Mononitrate 30 mg [Imdur 30 MG] 30 mg PO DAILY 05/14/24 [History] Lisinopril 10 mg [Zestril 10 MG] 10 mg PO DAILY 05/14/24 [History] Omeprazole 20 mg PO DAILY 05/14/24 [History] Hx Tetanus, Diphtheria Vaccination/Date Given: No Hx Influenza Vaccination/Date Given: Yes Hx Pneumococcal Vaccination/Date Given: Yes Travel Risk - International Travel Have you traveled outside of the country in past 3 weeks: No - Emerging Infectious Disease Are you exhibiting symptoms associated with any current EIDs: No Symptoms: Abdominal Pain - Review of Systems Constitutional: No Symptoms Eyes: No Symptoms Ears, Nose, & Throat: No Symptoms Respiratory: No Symptoms Cardiac: No Symptoms Abdominal/Gastrointestinal: Abdominal Pain Genitourinary Symptoms: No Symptoms Musculoskeletal: No Symptoms Skin: No Symptoms Neurological: No Symptoms Psychological: No Symptoms Endocrine: No Symptoms Hematologic/Lymphatic: No Symptoms Immunological/Allergic: No Symptoms All Other Systems: Reviewed and Negative - Past Medical History Pertinent Past Medical History: Yes Neurological History: No Pertinent History ENT History: No Pertinent History Cardiac History: Hypertension, Myocardial Infarction ([place]) Respiratory History: No Pertinent History Endocrine Medical History: No Pertinent History Musculoskeletal History: Arthritis GI Medical History: No Pertinent History History: No Pertinent History Psycho-Social History: No Pertinent History Male Reproductive Disorders: No Pertinent History - Past Surgical History Past Surgical History: Yes Neuro Surgical History: No Pertinent History Cardiac: CABG, Cardiac Catheterization, Cardiac Stent Respiratory: No Pertinent History Gastrointestinal: No Pertinent History Genitourinary: No Pertinent History Musculoskeletal: Orthopedic Surgery Male Surgical History: No Pertinent History Other Surgical History: rt shoulder - Social History Smoking Status: Former smoker Exposure to second hand smoke: No Drug Use: none - Social Determinants of Health Will the patient participate in the screening: Yes Do you worry about a steady place to live?: No In the past 12 months,have you had to go without utilities?: No Transportation Issues: No Has anyone in your support network made you feel unsafe?: No Have you or anyone in your house had to go w/o enough food: No - Nursing Vital Signs Nursing Vital Signs: Initial Vital Signs Temperature 97.8 F 05/19/24 10:44 Pulse Rate 79 05/19/24 10:44 Respiratory Rate 18 05/19/24 10:44 Blood Pressure 164/76 05/19/24 10:44 O2 Sat by Pulse Oximetry 96 05/19/24 10:44 Pain Scale Pain Intensity 4 - Physical Exam General Appearance: no apparent distress, alert Eye Exam: PERRL/EOMI, eyes nml inspection Ears, Nose, Throat Exam: normal ENT inspection, moist mucous membranes Neck Exam: normal inspection, non-tender, supple, full range of motion Respiratory Exam: normal breath sounds, lungs clear, airway intact, No chest tenderness, No respiratory distress Cardiovascular Exam: regular rate/rhythm, normal heart sounds, normal peripheral pulses Gastrointestinal/Abdomen Exam: soft, normal bowel sounds, tenderness (Mild periumbilical discomfort with palpation), No guarding, No rebound Rectal Exam: not done Back Exam: normal inspection, normal range of motion, No CVA tenderness, No vertebral tenderness Extremity Exam: normal inspection, normal range of motion, pelvis stable Neurologic Exam: alert, oriented x 3, cooperative, 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 tested, normal mood/affect, nml cerebellar function, nml station & gait, sensation nml Skin Exam: normal color, warm, dry Lymphatic Exam: No adenopathy SpO2 Interpretation: normal O2 Delivery: Room Air - Course Nursing assessment & vital signs reviewed: Yes - Progress Progress: unchanged Progress Note: 05/19/24 11:04 My medical decision making and the assignment of low complexity to this patient's medical issue today is based on review of the patient's past medical history, review the patient's medication list, reviewed patient drug allergy list, history present illness and physical findings on examination. The patient is awake he is alert and he is oriented. He understands what he is asking for and is refusing a workup that would have included placement of an intravenous line, infusion of crystalloid solution, lab work including troponin and urinalysis as well as CT scan of the abdomen pelvis. He is aware that I cannot determine why his pain recurred and why it is intermittently present. He will sign refusal of care prescription and I will provide him with a remote prescription for 2 to 3 days of [place] 5/325. I will also send a prescription of Zofran ODT to his pharmacy remotely. Patient agrees to return to the emergency department if he changes his mind or symptoms worsen. Medical Desision Making - Diagnostic Testing Diagnostic test were ordered, analyzed, and reviewed by me: No - Risk of complications The pt has a mod risk of morbidity or mortality based on: Need for prescription drug management - Departure Departure Disposition: Home Clinical Impression: Abdominal pain, Encounter for medical screening examination Condition: Stable Critical Care Time: No Referrals: TRISTON LEBLANC MD [Primary Care Provider] - Follow up/PCP as directed Additional Instructions: Drop your diet back to clear liquid diet and advance to a nonfat diet if you tolerate clear liquids well. Avoid fatty greasy spicy foods. Take all your medications as prescribed. Return to the emergency department if you change your mind and decide you want a workup performed, or your symptoms are persistent or worsening. Follow-up with your primary care provider on 05/21/2024, to make arrangements for an appointment to be seen in the next 2 to 3 days. Prescriptions: Hydrocodone/APAP 5/325 [[place] 5/325 mg] 1 each PO Q8H PRN PRN #8 tablet MDD 3 PRN Reason: Pain
[2024-05-19 10:49] VITALS: BP 164/76; PULSE 79; RESP 18; TEMP 97.8
[2024-05-19 11:12] VITALS: O2SAT 94
== END 2024-05-19 11:15 | disposition left against medical advice (07) ==
LOC: ED 10:34
DX: R10.9 Unspecified abdominal pain (principal); E78.5 Hyperlipidemia, unspecified; I10 Essential (primary) hypertension; Z79.891 Long term (current) use of opiate analgesic; Z79.899 Other long term (current) drug therapy
CPT/HCPCS: 99283